=== PATIENT | male | born 1950 | race Caucasian/White ===

== ENCOUNTER → 2020-02-04 12:18 | Outpatient (BNVA) | payer MEDICARE, OTHER, SELFPAY | PROVIDERS: Family Provider Family Medicine; PCP Family Medicine; Visit Provider Anesthesiology Pain Medicine | DX: M47.816 Spondylosis without myelopathy or radiculopathy, lumbar region (principal); M47.812 Spondylosis without myelopathy or radiculopathy, cervical region; M96.1 Postlaminectomy syndrome, not elsewhere classified; Z79.891 Long term (current) use of opiate analgesic | CPT/HCPCS: 99204 ==

== ENCOUNTER → 2020-02-05 10:42 | Outpatient (BNVA) | payer MEDICARE, OTHER, SELFPAY | PROVIDERS: Family Provider Family Medicine; PCP Family Medicine; Visit Provider Anesthesiology Pain Medicine | DX: M47.816 Spondylosis without myelopathy or radiculopathy, lumbar region (principal); M96.1 Postlaminectomy syndrome, not elsewhere classified; M54.9 Dorsalgia, unspecified; Z79.891 Long term (current) use of opiate analgesic | CPT/HCPCS: 64493; 64494; 64495; J2001; J3490 ==

== ENCOUNTER 2020-02-16 14:39 | Outpatient (CLI) | payer MEDICARE, OTHER, SELFPAY ==
--- NOTE | 2020-02-16 14:45 | XR_ITS ---
WS: [id number] SKULL TECHNIQUE: 4 views of the skull CLINICAL INFORMATION: posterior lesion of skull COMPARISON: None. FINDINGS: Slight hypertrophic spurring along the dorsal inferior occipital calvarium. No visualized lytic or bl astic lesion. This appears unchanged since the prior CT November 11, 2014 and has a benign appearance . Moderate spondylitic changes partially visualized in the upper cervical spine. XR/XR skull <4V [id number] IMPRESSION: Hypertrophic spurring along the dorsal inferior occipital calvarium unchanged s lynn prior CT November 11, 2014
== END 2020-02-16 14:40 | disposition home or self-care (01) ==
LOC: RADWPI 14:44
PROVIDERS: Family Provider Family Medicine; PCP Family Medicine; Visit Provider Family Medicine
DX: Z01.818 Encounter for other preprocedural examination (principal); Q75.9 Congenital malformation of skull and face bones, unspecified; E11.9 Type 2 diabetes mellitus without complications; N40.0 Benign prostatic hyperplasia without lower urinary tract symptoms; M54.2 Cervicalgia; I10 Essential (primary) hypertension; E78.00 Pure hypercholesterolemia, unspecified; Z68.25 Body mass index [BMI] 25.0-25.9, adult; Z71.89 Other specified counseling
CPT/HCPCS: 70250; 80053; 80061; 83036; 85025; G0103

== ENCOUNTER → 2020-02-19 10:04 | Outpatient (BNVA) | payer MEDICARE, OTHER, SELFPAY | PROVIDERS: Family Provider Family Medicine; PCP Family Medicine; Visit Provider Anesthesiology Pain Medicine | DX: M47.816 Spondylosis without myelopathy or radiculopathy, lumbar region (principal); M54.9 Dorsalgia, unspecified; M96.1 Postlaminectomy syndrome, not elsewhere classified; M47.812 Spondylosis without myelopathy or radiculopathy, cervical region | CPT/HCPCS: 99213 ==

== ENCOUNTER 2020-03-08 05:52 | Inpatient (IN) | payer MEDICARE, OTHER, SELFPAY ==
[2020-03-05 13:48] VITALS: BMI 23.7
[2020-03-08] VITALS (22 sets, daily range): BP systolic 140–160; BP diastolic 69–86; PULSE 84–111; RESP 11–27; TEMP 36.2–36.8; O2SAT 95–100
--- NOTE | 2020-03-08 | XR_ITS ---
WS: [id number] XR cervical spine 3V* [id number] REASON FOR EXAM: Fusion of spine FINDINGS: Posterior instrumentation changes are noted C3-C4-C5 the hardware appears to be in good ali gnment. XR/XR cervical spine 3V* [id number] IMPRESSION: Posterior fusion C3 3-C4-C5.
--- NOTE | 2020-03-08 | SCC_ITS ---
Procedure Done: C2-C5 laminectomy/fusion/fixation 47.0 seconds of fluoroscopic guidance, for a cumulative dose of 1.76 mGy, was provided to Dr. Benitez by the radiology department. C-arm images of the cervical spine were saved for the patient's permanent record. [facility]
--- NOTE | 2020-03-08 06:21 | ECG_ITS ---
Measurements Intervals [place] Rate: 72 P: 77 OK: 194 QRS: 81 QRSD: 95 T: 64 QT: 387 QTc: 426 SINUS RHYTHM Compared to ECG 07/01/2016 17:11:05 No significant changes Electronically Signed On 03-08-2020 17:07:32 CDT by Musa Hedrick M.D. [email or web address]
[2020-03-08 06:28] LABS: Glucose Point of Care 83 mg/dL (70-110)
--- NOTE | 2020-03-08 06:36 | ANES.PREANE2 ---
Pre-Anesthetic Assessment Pre-Anesthetic Assessment: Height/Weight: Height 1.85 m Weight 81.647 kg Preop Diagnosis: Intervertebral disc disorder with myelopathy, mid cervical region; ossification of posterior longitudinal ligament Proposed Procedure: Operation Date: 03/08/20 07:00 Proposed Procedures p Cervical Laminectomy Posterior w/ Fusion C2-5(Not Applicable) - Lenny Benitez MD Familial anesthetic complications: none Was Beta Shin taken within 24 hours: N/A Last intake: Intake Last Liquid Date 03/07/20 Last Liquid Time 22:00 Last Solid Date 03/07/20 Last Solid Time 18:00 Social: Social History: No alcohol and No tobacco Exam: Pre-Anes Outpt Exam: alert, oriented x 3, clear to auscultation bilaterally and regular rate & rhythm Airway: Cervical ROM: WNL MP: 2 Dentition: False Pulmonary: Pulmonary: None reported CV/HEM: CV/HEM: HTN : : None reported Hepatic: Hepatic: None reported GI: GI: None reported Metabolic: Metabolic: DM and Hyperlipidemia Neuropsych: Neuropsych: None reported Anesthetic Plan: ASA status: 2 Anesthesia: General Risk of > 500 ml blood loss (7ml/kg in children): No PFSH Anesthesia PFSH: Medical History Cervical disc disorder with myelopathy of mid-cervical region Essential hypertension Hypercholesteremia Insomnia Ossification of posterior longitudinal ligament Post laminectomy syndrome Type 2 diabetes mellitus Social History (Updated 03/05/20 @ 13:43 by [email or web address]) Smoking and tobacco status: never smoked Data Anesthesia Other Labs: Laboratory Results - last 48 hr 03/08/20 06:26 POC Glucose 83 Cardiac Studies: No Data to Display
[2020-03-08] MEDS: sodium chloride 0.9% 1,000 ML 30 ML IV (06:37)
[2020-03-08] MEDS: vancomycin 1,000 MG in sodium chloride 0.9% 250 ML 250 MG IV (06:38)
--- NOTE | 2020-03-08 07:19 | P.HPUD_ITS ---
Surgery/Procedure H&P Update DATE OF PROCEDURE: March 08, 2020 DATE H&P PERFORMED: 02/16/20 H&P UPDATE INFORMATION: I have reviewed H&P completed within last 30 days and H&P is in [facility] [place] on date indicated PREOP DIAGNOSIS: Intervertebral disc disorder with myelopathy, mid cervical region; ossification of posterior longitudinal ligament PRIMARY INDICATION FOR PROCEDURE: Spinal stenosis PLANNED PROCEDURE: Operation Date: 03/08/20 07:00 Proposed Procedures Cervical Laminectomy, with posterior fixation / fusion C2-5(Not Applicable) - Lenny Benitez MD
--- NOTE | 2020-03-08 07:20 | PM.OP2 ---
Brief Operative Note: Date of procedure: 03/08/20 Pre-op diagnosis: Cervical spinal stenosis, OPLL Post-op diagnosis: same (with instability of joint) Procedure Done: C2-C5 laminectomy/fusion/fixation Surgeon: Lenny Benitez Estimated blood loss (mL): 50 Complications: None Post-op Plan: PACU, then surgical sharma Condition: stable Disposition: PACU Coding Level of Care Code Acute Echocardiographer for Alex Man
--- NOTE | 2020-03-08 08:21 | SUR.OPER ---
Family Notified Of Patient's Status Via Phone.
[2020-03-08] MEDS: thrombin 5,000 unit SDV 5000 UNIT XX (08:31)
--- NOTE | 2020-03-08 09:19 | SUR.OPER ---
Family Notified Of Patient's Status Via Phone.
--- NOTE | 2020-03-08 10:34 | SUR.OPER ---
Family Notified Of Patient's Status Via Phone.
--- NOTE | 2020-03-08 11:41 | SUR.OPER ---
Family Notified Of Patient's Status Via Phone.
[2020-03-08] MEDS: neomycin-poly-bacitracin oint 28 gm 1 APPLIC TOPICAL (12:28)
--- NOTE | 2020-03-08 12:52 | SUR.PHASEI ---
1248 PATIENT TO PACU FROM OR AT THIS TIME. ORAL AIRWAY IN PLACE, SPO2 100% ON SIMPLE MASK AT 8L. COLLAR IN PLACE TO NECK.
--- NOTE | 2020-03-08 12:54 | SUR.PHASEI ---
1254 ORAL AIRWAY REMOVED. SPO2 100% ON SIMPLE MASK AT 8L.
[2020-03-08] MEDS: fentaNYL 50 mcg/mL INJ 2mL IVP ×2 (13:14→13:24)
--- NOTE | 2020-03-08 13:49 | XR_ITS ---
WS: [id number] XR cervical spine 3V* [id number] REASON FOR EXAM: AP/LAT Post op Fusion FINDINGS: Posterior instrumentation changes C3-C4-C5 with good placement of the pedicle screws. Neutr al and crosstable evaluations were made. XR/XR cervical spine 3V* [id number] IMPRESSION: Stable posterior instrumentation C3-C4-C5.
--- NOTE | 2020-03-08 13:50 | SUR.PHASEI ---
1336 PATIENT TO MED SURG AT THIS TIME. A/OX3. RR EVEN AND UNLABORED. COLLAR IN PLACE. PATIENT C/O PAIN 9/10, FACES 5/10, RESTING IN BED WITH EYES CLOSED.
--- NOTE | 2020-03-08 13:51 | SUR.PHASEI ---
1336 ANESTHESIA AWARE OF LAST DOSE OF IV PAIN MEDICATION. THIS NURSE REMAINED WITH PATIENT UNTIL 1339.
[2020-03-08] MEDS: HYDROcodone-acetaminophen 10-325 mg Tablet PO (14:21)
[2020-03-08] MEDS: sodium chlor 0.9% + KCl 20 mEq 20 MEQ/1,000 ML BAG 75 MEQ IV (14:24)
--- NOTE | 2020-03-08 14:52 | P.PN_ITS ---
Subjective Subjective: Interval history: Complains of incisional/shoulder pain. Medications: Reviewed: Yes Vitals/I&O/Wt Last Vital Signs Temp 98.0 F 03/08/20 13:35 Pulse 87 03/08/20 13:35 Resp 13 03/08/20 13:35 BP 141/74 03/08/20 13:35 Pulse Ox 100 03/08/20 13:35 03/07/20 03/08/20 03/08/20 22:59 06:59 14:59 Intake Total 2049 Output Total 550 / 550 Balance 1500 / 1500 Physical Exam Const: COMMON NORMALS: healthy appearing GENERAL APPEARANCE: cooperative; not comfortable Neck/C-Spine: GENERAL: Yes trachea midline CERVICAL SPINE: Yes collar present Resp: COMMON NORMALS: normal respiratory effort EFFORT & INSPECTION: Yes able to speak in complete sentences and No stridor Extremity: COMMON NORMALS: no clubbing, cyanosis or edema Neuro: COMMON NORMALS: moves all extremities Psych: COMMON NORMALS: mental status grossly normal, Normal thought process present and speech normal APPEARANCE: Yes grossly normal ATTITUDE: Yes engaged, Yes agitated (mild) and Yes Other attitude/behavior findings present (Psych) (related to pain) ACTIVITY/MOTOR BEHAVIOR: Yes appropriate eye contact SPEECH: Yes normal speech MOOD & AFFECT: Yes euthymic mood THOUGHT PROCESS: Normal thought process present ATTENTION/CONCENTRATION: Yes attention grossly intact Skin: WOUNDS: Yes surgical site (Moderate serosanguineous drainage on posterior neck surgical site dressing. Dressing changed at bedside. No active drainage. Sutures intact.) Urinary Catheter Management^: F: Cath Placed During This Visit: yes, but has since been removed by the nurse Urinary Catheter Date of Insertion: 03/08/20 Urinary Catheter Time of Insertion: 07:45 Date Urinary Catheter Removed: 03/08/20 Time Urinary Catheter Discontinued: 12:30 Data Other Xray: Radiologist's impression: Stable posterior instrumentation C3-C4-C5. A&P Assessment and plan (1) Cervical spinal stenosis: Patient underwent multilevel cervical laminectomy with posterior fusion/fixation earlier today. He complains of posterior neck/incisional pain and shoulder pain. He reports chronic shoulder pain related to arthritis. He reports significant difficulty with postoperative pain control following a lumbar fusion many years ago. Plan medication adjustments to improve postoperative pain/spasm control. Cervical collar wear at all times. Daily physical therapy. Complete scheduled postoperative intravenous antibiotics. Evaluate for discharge home tomorrow. Status: Acute (2) Ossification of posterior longitudinal ligament: Status: Acute (3) Instability of joint: Status: Acute Attestations Medical Necessity Statement*: Patient is appropriate for in-hospital management after extensive posterior cervical decompression/fusion/fixation surgery earlier today. Time Spent in Patient Care: Postop global Coding Level of Care Code Acute Learning Center Instructor for [facility] Fwd Exam Detailed Diagnoses Cervical spinal stenosis M48.02 Ossification of posterior longitudinal ligament M48.8X9 Instability of joint M25.30 Comment Postop global
[2020-03-08] MEDS: ketorolac 30 mg/mL INJ 15 MG IVP ×2 (14:57→20:09)
[2020-03-08] MEDS: gabapentin 300 mg Capsule 600 MG PO ×2 (16:02→21:45)
--- NOTE | 2020-03-08 16:36 | CTR_ITS ---
PROCEDURE INFORMATION: Exam: CT Cervical Spine Without Contrast Exam date and time: 03/08/2020 4:48 PM Age: 69 years old Clinical indication: Other: Post op pain; Prior surgery; Surgery date: Post-operative (0-2 days); Additional info: Uncontrolled pain post surgery TECHNIQUE: Imaging protocol: Computed tomography images of the cervical spine without contrast. Radiation optimization: All CT scans at this facility use at least one of these dose optimization techniques: automated exposure control; mA and/or kV adjustment per patient size (includes targeted exams where dose is matched to clinical indication); or iterative reconstruction. COMPARISON: CT Cervical Spine wo* [id number] 07/10/2019 3:18 PM RADIATION DOSE METRICS: Total DLP: 920.99 mGy-cm FINDINGS: Vertebrae: Postoperative changes are identified with pedicle screws and posterior natasha fixation at C3,C4 and C5. The superior aspect of the rods have hooks are wrapping around the lamina of C2 posteriorly. This level is narrowed anteriorly by a large area of calcification along the posterior aspect of C2 and the C2-C3 disc space that measures up to 8 mm anterior to posterior. The laminectomy defect does not extend to this level. This is best appreciated on series 603, image 25. No additional area concerning for new cord compression is identified. Laminectomy defects are noted from C3 through C5. No subluxation or acute fracture. No bony destruction or osteomyelitis. Discs/Spinal canal/Neural foramina: These hooks are protruding into the central canal by about 5 mm posterior laterally and bilaterally. The combination of the postoperative changes and this calcification along the posterior aspect of the C2 vertebral body and disc space is resulting and marked narrowing of the spinal canal posterior to the inferior aspect of C2 and the C2-C3 disc space. Sagittal images also demonstrate this narrowing. Underlying moderate to severe diffuse degenerative changes are noted. Extensive calcification along the posterior longitudinal ligament is noted. Unchanged marked endplate bony proliferative changes and foraminal narrowing is noted at C5-C6 right greater than left. Epidural space: The exam is limited by artifact from the hardware but no definite epidural collection is identified. Other bones/joints: No hardware complication. Prevertebral Space: Prevertebral soft tissues have an appropriate appearance. Soft tissues: There is subcutaneous emphysema in the soft tissues posterior to the neck compatible with recent surgery. There is very little ill-defined fluid in the fascial plane between the paraspinal muscles in the operative bed compatible probable postoperative hematoma or serous fluid. Lungs: Lung apices are normal. CT/CT cervical spin wo con* [id number] IMPRESSION: 1. Recent postoperative changes in the cervical spine. No fluid collection such as an abscess, significant hematoma or osteomyelitis. Underlying degenerative changes and ligamentous calcification is noted. 2. There is narrowing of the central canal posterior to C2 and C3 due to the combination of underlying chronic large posterior ligamentous calcification and new postoperative narrowing due to the hooks on the lamina of C2. There is concern for new central canal stenosis/circumferential cord compression. The laminectomy defect does not involve this level. Radiation Dose CTDIVOL = (mGy): DLP = 920.99 (mGy-cm)
[2020-03-08 17:14] LABS: Glucose Point of Care 171 mg/dL (70-110)
[2020-03-08] MEDS: docusate sodium 100 mg Capsule PO (17:36)
[2020-03-08] MEDS: oxyCODONE 5 mg IR Tab/Cap PO ×2 (17:36→21:46)
--- NOTE | 2020-03-08 18:02 | PM.PN ---
Vitals/I&O/Wt Last Vital Signs Temp 97.8 F 03/08/20 14:45 Pulse 99 03/08/20 16:12 Resp 18 03/08/20 17:36 BP 158/86 03/08/20 14:45 Pulse Ox 96 03/08/20 17:36 03/08/20 03/08/20 03/08/20 06:59 14:59 22:59 Intake Total 2049 / 2049 Output Total 550 / 550 Balance 1500 / 1500 Physical Exam Urinary Catheter Management^: F: Cath Placed During This Visit: yes, but has since been removed by the nurse Urinary Catheter Date of Insertion: 03/08/20 Urinary Catheter Time of Insertion: 07:45 Date Urinary Catheter Removed: 03/08/20 Time Urinary Catheter Discontinued: 12:30 Coding Level of Care Code Acute Operations Forester for Alex Man
[2020-03-08] MEDS: ALPRAZolam 0.5 mg Tablet PO (18:38)
[2020-03-08 21:24] LABS: Glucose Point of Care 127 mg/dL (70-110)
[2020-03-09] VITALS (8 sets, daily range): BP systolic 92–147; BP diastolic 55–75; PULSE 83–100; RESP 16–20; TEMP 36.6–37.6; O2SAT 93–96
[2020-03-09] MEDS: ketorolac 30 mg/mL INJ 15 MG IVP ×2 (02:44→08:51)
[2020-03-09] MEDS: sodium chlor 0.9% + KCl 20 mEq 20 MEQ/1,000 ML BAG 75 MEQ IV (02:52)
[2020-03-09] MEDS: ALPRAZolam 0.5 mg Tablet 1 MG PO ×2 (04:38→21:21)
[2020-03-09] MEDS: oxyCODONE 5 mg IR Tab/Cap PO ×2 (04:44→10:23)
[2020-03-09 06:40] LABS: Glucose Point of Care 107 mg/dL (70-110)
[2020-03-09] MEDS: gabapentin 300 mg Capsule 600 MG PO ×3 (08:50→21:21)
[2020-03-09] MEDS: doxazosin 4 mg Tablet PO (08:51)
[2020-03-09] MEDS: lisinopril 10 mg Tablet PO (08:51)
[2020-03-09] MEDS: docusate sodium 100 mg Capsule PO ×2 (08:51→17:58)
[2020-03-09 11:37] LABS: Glucose Point of Care 272 mg/dL (70-110)
--- NOTE | 2020-03-09 15:20 | PC.NURSE ---
1520 WENT INTO PTS ROOM, PT WAS UP WALKING AROUND HIS ROOM, HE GOT OUT OF BED BY HIMSELF. HE ALSO WAS REACHING WITH BOTH ARMS. EARLIER PT WAS A MOD ASSIST. NO COMPLAINTS OF PAIN AT THIS TIME.
--- NOTE | 2020-03-09 16:23 | P.OP_ITS ---
Operative Report Date of procedure: March 08, 2020 Pre-op Diagnosis: Intervertebral disc disorder with myelopathy, mid cervical region; ossification of posterior longitudinal ligament Post-op diagnosis: same (With instability of joint) Procedure Done: Multilevel cervical laminectomy, with C2-C5 posterior fusion/segmental fixation. Implants: DePuy/Synthes Axon 3.5 mm x 14 mm screws, 3.5 mm rods, transverse connector, locking screws, and short lamina hooks. Pathology: none sent Surgeon: Lenny Benitez Anesthesia: General Estimated blood loss (mL): 50 IV fluids (mL): 1,500 Urine output (mL): 500 Complications: None Condition: stable Disposition: PACU Brief History: The patient is a 69 year-old male with symptomatic, radiographically confirmed cervical disc/joint disease, cervical spinal stenosis, and OPLL. Diagnostic imaging demonstrated marked multilevel anterior canal compromise related to degenerative disc/joint disease, marginal osteophytes and OPLL. After review of the diagnostic and treatment options with the risks, potential benefits and rationale for each, the patient requested to p simeon with surgical intervention for multilevel cervical decompression via laminectomy, with posterior fusion/fixation. Procedure: After routine preoperative evaluation and informed consent were obtained, the patient was taken to the Operating Room and placed under general endotracheal anesthesia. He was fit in the Connor 3-point overhead crane technician and rotated onto the Operating Room table in the prone position. The Connor adapter was utilized to fix the Connor headholder and stabilize the head/neck in the desired position. Chest and pelvic bolsters were positioned to ensure the abdomen was decompressed. All pressure points were padded. Intraoperative fluoroscopy was utilized to assess positioning and spinal alignment. The occipital scalp, posterior neck and thorax were prepared with hair clippers. The area was scrubbed with Betadine and prepped with DuraPrep. A proposed midline skin incision was marked with a sterile skin marker. Sterile towels and drapes were applied and an [place] surgical barrier was placed. The proposed incision site was infiltrated with 1% Xylocaine with Epinephrine. A skin incision was made and carried down into the subcutaneous tissues. The deep cervical fascia was identified and divided in the midline. A bilateral subperiosteal dissection was carried out along the lamina from C2-C6. Deep self-retaining retractors were placed. Intraoperative radiography was utilized to assist in verifying the desired surgical levels. Bilateral lateral mass screws were placed at C3/C4/C5, with flouroscopic guidance. Good bone purchase was obtained at each screw site. Laminectomies were then fashioned utilizing Leksell and Kerrison rongeurs. The laminectomy primarily involved C3, C4, and C5, with limited resectiion of the inferior aspect of C2. Ligamentum flavum was resected at the base of the laminectomy sites. Ligament was undercut into the lateral recesses and beyond the cephalad extent of the C2 laminectomy. At the completion of the laminectomies, the central canal was probed above and below the laminectomy defects utilizing a [employer] dental instrument. No residual neural impingement/spinal stenosis was appreciated requiring further extension of the laminectomy. Once the posterior canal decompression was felt to be adequate, rods of the desired size and configuration were chosen. [place] were placed over the C2 lamina, bilaterally. A natasha was placed within the hook and the 3 lateral mass screws on each side. The locking screws were tightened with a torque wrench. A transverse connector was chosen and secured to the primary rods with locking screws and the torque wrench. The crimping tool was utilized bilaterally to lock the transverse connector position. The construct was inspec kim, evaluated with flouroscopy, and felt to be secure. The site was copiously irrigated with sterile saline and antibiotic irrigation. Hemostasis was ensured with electrocautery and thrombin-soaked Gelfoam. Morselized autograft from the laminectomies was packed over the decorticated facet joints/lateral masses, bilaterally. This was augmented with [place] moldable demineralized fibers. Wound closure was performed in multiple layers. The deep cervical fascia was closed with 0 Nurolon in a simple interrupted fashion. Superficial fascia and deep dermis were closed as separate layers, utilizing 2-0 Vicryl Plus in a simple interrupted fashion. Final skin closure was performed with interrupted 3-0 nylon sutures. Antibiotic ointment was placed along the incision line. A sterile dressing was placed. The patient was then rotated onto the Recovery Room cart in the supine position. The Connor overhead crane technician was removed. He was extubated without incident. The patient tolerated the procedure well. All sponge, needle and instrument counts were correct at the completion of the procedure. The patient was transported to the Post Anesthesia Care Unit for routine postoperative monitoring.
[2020-03-09 16:54] LABS: Glucose Point of Care 144 mg/dL (70-110)
[2020-03-09 20:39] LABS: Glucose Point of Care 132 mg/dL (70-110)
--- NOTE | 2020-03-09 23:57 | PM.PN ---
Subjective Subjective: Interval history: A little better. Vitals/I&O/Wt Last Vital Signs Temp 98.5 F 03/09/20 20:00 Pulse 83 03/09/20 20:00 Resp 18 03/09/20 20:00 BP 133/72 03/09/20 20:00 Pulse Ox 94 03/09/20 20:00 03/09/20 03/09/20 03/10/20 14:59 22:59 06:59 Intake Total 240 / 240 240 / 480 Output Total 400 / 400 1225 / 1625 Balance -160 / -160 -985 / -1145 Physical Exam Const: COMMON NORMALS: no acute distress GENERAL APPEARANCE: cooperative and comfortable Neck/C-Spine: GENERAL: Yes trachea midline CERVICAL SPINE: Yes collar present Resp: COMMON NORMALS: normal respiratory effort EFFORT & INSPECTION: Yes able to speak in complete sentences and No tachypneic Extremity: COMMON NORMALS: no clubbing, cyanosis or edema Neuro: COMMON NORMALS: moves all extremities GAIT: Yes Normal gait present Psych: COMMON NORMALS: Normal thought process present ATTITUDE: Yes calm and Yes engaged ACTIVITY/MOTOR BEHAVIOR: Yes appropriate eye contact MOOD & AFFECT: Yes euthymic mood THOUGHT PROCESS: Normal thought process present ATTENTION/CONCENTRATION: Yes attention grossly intact Skin: WOUNDS: Yes surgical site (posterior cervical surgical site dressing w/scant serosanguineous drainage) Details: drainage (no active drainage), sutures (intact) and other Urinary Catheter Management^: F: Cath Placed During This Visit: yes, but has since been removed by the nurse Urinary Catheter Date of Insertion: 03/08/20 Urinary Catheter Time of Insertion: 07:45 Date Urinary Catheter Removed: 03/08/20 Time Urinary Catheter Discontinued: 12:[address]: My impression: Postop changes of recent multilevel cervical laminectomy, with bilateral C2 laminar hook/C3-C5 lateral mass screw and natasha fixation, and posterolateral fusion. No noted complication. A&P Assessment and plan (1) Cervical spinal stenosis: Patient is POD#1 after multilevel cervical laminectomy with posterior fusion/fixation. He complained of posterior neck and shoulder pain yesterday evening that prompted a c-spine CT. The study was personally reviewed, and discussed with the outside Radiologist. He reports improvement in pain today, and has been ambulatory with PT and independently. He is voiding and tolerating oral intake. He has completed scheduled postop IV antibiotics, and is utilizing only po pain meds. He was deemed appropriate for discharge home, but requested an appeal for another overnight stay. Plan re-evaluation in AM,and likely discharge home with Home Health services. Continue C-collar wear, activity restrictions and medications for postop pain/spasms. Status: Acute (2) Ossification of posterior longitudinal ligament: Status: Acute (3) Instability of joint: Status: Acute Attestations Medical Necessity Statement*: Patient is appropriate for in-hospital management after a multilevel posterior cervical decompression/fusion/fixation procedure performed yesterday. Coding Level of Care Code Acute Dermatologist for [facility] Fwd Exam Detailed Diagnoses Cervical spinal stenosis M48.02 Ossification of posterior longitudinal ligament M48.8X9 Instability of joint M25.30 Comment Postop global
[2020-03-10] VITALS: BP 149/66; PULSE 86; RESP 18; TEMP 37.3; O2SAT 93
[2020-03-10 04:00] VITALS: BP 169/73; PULSE 109; RESP 16; TEMP 36.9; O2SAT 95
[2020-03-10] MEDS: oxyCODONE 5 mg IR Tab/Cap PO ×2 (04:48→12:37)
[2020-03-10 07:41] VITALS: BP 123/73; PULSE 87; RESP 18; TEMP 37; O2SAT 95
[2020-03-10] MEDS: docusate sodium 100 mg Capsule PO (08:52)
[2020-03-10] MEDS: doxazosin 4 mg Tablet PO (08:52)
[2020-03-10] MEDS: gabapentin 300 mg Capsule 600 MG PO (08:52)
[2020-03-10] MEDS: lisinopril 10 mg Tablet PO (08:52)
[2020-03-10 09:04] LABS: Glucose Point of Care 162 mg/dL (70-110)
[2020-03-10 11:27] VITALS: BP 121/63; PULSE 79; RESP 18; TEMP 37.7; O2SAT 96
[2020-03-10 11:45] LABS: Glucose Point of Care 188 mg/dL (70-110)
[2020-03-10 12:23] VITALS: BP 121/63; PULSE 79; RESP 18; TEMP 37.7; O2SAT 96
[2020-03-10 12:37] VITALS: RESP 18
--- NOTE | 2020-03-10 16:35 | PM.DCS ---
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 Diagnostic imaging demonstrated marked multilevel anterior canal compromise related to degenerative disc/joint disease, marginal osteophytes and OPLL. After review of the diagnostic and treatment options with the risks, potential benefits and rationale for each, the patient requested to proceed with surgical intervention for multilevel cervical decompression via laminectomy, with posterior fusion/fixation. Hospital Course Hospital Course: The patient underwent multilevel cervical laminectomy with C2-C5 segmental posterior fixation and fusion on 03/08/2020. He complained of postoperative pain that was treated with medication adjustments. Postoperative x-rays were reviewed, and no complications were appreciated. Persistent/refractory pain was further evaluated with a cervical spine CT. Subsequent medication adjustments were made to better control pain issues. He noted gradual improvement over his hospital stay. He completed perioperative intravenous antibiotic doses, and the physical therapy postoperative spine protocol. He was ambulatory, voiding, and tolerating diabetic diet on postoperative day #1. He appealed the planned discharge, and was maintained in the hospital for an additional overnight stay. He was ultimately discharged home on postoperative day #2, with Home Health services. Physical Exam Const: COMMON NORMALS: no acute distress GENERAL APPEARANCE: cooperative; not in distress Neck/C-Spine: COMMON NORMALS: supple and no JVD CERVICAL SPINE: Yes collar present NECK IMAGES: 1. Surgical scar Resp: COMMON NORMALS: normal respiratory effort EFFORT & INSPECTION: Yes able to speak in complete sentences and No tachypneic Cardio: COMMON NORMALS: no JVD Extremity: COMMON NORMALS: no clubbing, cyanosis or edema Neuro: COMMON NORMALS: moves all extremities GAIT: Yes Other gait observations present (Ambulates unassisted) Psych: COMMON NORMALS: mental status grossly normal and speech normal APPEARANCE: Yes grossly normal ATTITUDE: Yes calm and Yes engaged ACTIVITY/MOTOR BEHAVIOR: Yes appropriate eye contact SPEECH: Yes normal speech MOOD & AFFECT: Yes euthymic mood ATTENTION/CONCENTRATION: Yes attention grossly intact MEMORY/COGNITION: Yes memory grossly intact Skin: WOUNDS: Yes surgical site (Posterior cervical surgical site dressing clean/dry/intact.) Urinary Catheter Management^: F: Cath Placed During This Visit: yes, but has since been removed by the nurse Urinary Catheter Date of Insertion: 03/08/20 Urinary Catheter Time of Insertion: 07:45 Date Urinary Catheter Removed: 03/08/20 Time Urinary Catheter Discontinued: 12:30 Discharge Data Data Completed and Pending: Completed Studies During Hospitalization Category Date Time Status CT cervical spin wo con* [id number] Stat Cat Scan 03/08/20 16:36 Completed XR cervical spine 3V* [id number] Routine Exams 03/08/20 Completed XR cervical spine 3V* [id number] Routine Exams 03/08/20 13:49 Completed Procedures Performed: Multilevel cervical laminectomy, with C2-C5 posterior cervical fixation and fusion. Intravenous antibiotics. Physical therapy. Vitals: Last Vital Signs Temp 99.8 F H 03/10/20 12:23 Pulse 79 03/10/20 12:23 Resp 18 03/10/20 12:37 BP 121/63 03/10/20 12:23 Pulse Ox 96 03/10/20 12:23 Discharge Plan Discharge Patient Disposition: Home Health Service Condition: Stable Prescriptions: New Percocet 10-325 mg tablet 1 tab PO Q4H MDD 5 tabs PRN (Reason: pain) Qty: 30 RF: 0 Continued tizanidine 4 mg capsule 4 mg PO Q8H PRN (Reason: Pain) RF: 0 metformin 1,000 mg tablet 1,000 mg PO BID RF: 0 lutein 20 mg tablet 20 mg PO DAILY RF: 0 glimepiride 2 mg tablet 2 mg PO DAILY RF: 0 ramipril 2.5 mg capsule 2.5 mg PO QDAY 90 Days Qty: 90 RF: 3 gabapentin 600 mg tablet 600 mg PO TID 90 Days Qty: 270 RF: 3 alprazolam 1 mg tablet 1 mg PO DAILY 30 Days Qty: 30 RF: 5 doxazosin 4 mg tablet 4 mg PO DAILY 90 Days Qty: 90 RF: 3 Discharge Orders: Discharge Order (Routine); Ordered 03/10/20 Ordered By: Lenny Benitez Referrals: [facility] ([facility]) [Outside] Lenny Benitez MD [Physician] - 03/25/20 10:00 am (2 week postop visit/suture removal) Discharge Diet: Diabetic Discharge Activity: Limit activity as instructed and As per PT/OT instructions Patient Instructions: Diabetes and Diet, Oxycodone/Acetaminophen (By mouth), Anterior Posterior Spinal Fusion (DC), Laminectomy for Herniated Disc (DC) Activity Restrictions/Additional Instructions: Activity -Cervical fusion: Wear cervical collar 24 hours a day. Change as necessary for showering, shaving, or if it becomes soiled. -No lifting or reaching overhead. - No driving until office followup visit - No lifting/pushing/pulling over 10 pounds - Avoid twisting or bending - Walking is encouraged - Home exercise per physical therapist - You may engage in sexual intercourse at any time as long as it is comfortable for you - Check with your doctor before returning to work. Notify your doctor if you develop: - temperature of 101.5 degrees F. or higher - redness or swelling of the incision - Foul drainage - increasing pain - increasing numbness or tingling in the arms or legs - New or increasing problems with vision, balance, memory, speaking, nausea or vomiting Hygiene: - Showering is okay - No tub baths or soaking Other: Remove outer bandage 3 days after surgery. If you have paper strips, leave in place until they fall off on their own. If you have stitches, keep your incision dry until the stitches are removed. Your doctor's office is available to answer any questions from 7 AM to 5:00 PM, Sunday through at [phone]. After hours, go to the emergency room at [facility] or call 911 for assistance. 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
== END 2020-03-10 12:30 | disposition home health service (06) | DRG 472 ==
LOC: OR 05:52 → MEDSURG 09:46
PROVIDERS: Admitting Provider Specialist; PCP Family Medicine; Visit Provider Specialist
PROC: 01N10ZZ Release Cervical Nerve, Open Approach (ICD-10-PCS; CPT 22600; principal; 2020-03-08 07:00)
DX: M48.02 Spinal stenosis, cervical region (principal); M50.020 Cervical disc disorder with myelopathy, mid-cervical region, unspecified level; M25.30 Other instability, unspecified joint; I10 Essential (primary) hypertension; E11.9 Type 2 diabetes mellitus without complications; E78.00 Pure hypercholesterolemia, unspecified; N40.0 Benign prostatic hyperplasia without lower urinary tract symptoms; Z79.84 Long term (current) use of oral hypoglycemic drugs; Z98.1 Arthrodesis status; M48.8X2 Other specified spondylopathies, cervical region
CPT/HCPCS: 12345; 36416; 51702; 72040; 72125; 76000; 82962; 93005; 96365; 96372; 96375; 97161; 97164; 97530; 97760; C1713; J0131; J0690; J1100; J1815; J1885; J2001; J2370; J2405; J2704; J3010; J3370; J3490; J7030; J7050; L0172; L0174

== ENCOUNTER 2020-03-22 14:44 | Outpatient (CLI) | payer MEDICARE, OTHER, SELFPAY ==
--- NOTE | 2020-03-22 14:49 | XR_ITS ---
WS: [id number] XR cervical spine 3V* [id number] REASON FOR EXAM: s/p cervical spinal fusion FINDINGS: This study shows anterior fusion C3-C4-C5 appears to be stable. There is anterior fusion C2-C3. There is spurring seen anteriorly see 4-C5-C6. There is ankylosing changes seen 5-6, C6-7. XR/XR cervical spine 3V* [id number] IMPRESSION: Fusion of the cervical spine anteriorly There is posterior instrumentation C3-C4-C5 stable
== END 2020-03-22 14:45 | disposition home or self-care (01) ==
LOC: WPI 14:46
PROVIDERS: PCP Family Medicine; Visit Provider Licensed Practical Nurse
DX: Z98.1 Arthrodesis status (principal); M43.22 Fusion of spine, cervical region
CPT/HCPCS: 72040

== ENCOUNTER 2020-05-03 10:20 | Outpatient (CLI) | payer MEDICARE, OTHER, SELFPAY ==
--- NOTE | 2020-05-03 08:30 | XR_ITS ---
WS: [id number] CERVICAL SPINE 2 VIEWS HISTORY: s/p cervical spinal fusion COMPARISON: 03/22/2020 Posterior cervical fusion hardware extends from C2 through C5. Plates and screws are intact. No fract ure or movement. C4 retrolisthesis by 2 mm. Anterior bridging osteophytes throughout the cervical spine. Soft tissues are normal. XR/XR cervical spine 3V* [id number] IMPRESSION: Posterior cervical fusion from C2 through C5. No interval change or complicatio n since 03/22/2020.
== END 2020-05-03 10:21 | disposition home or self-care (01) ==
LOC: RADWPI 10:28
PROVIDERS: PCP Family Medicine; Visit Provider Licensed Practical Nurse
DX: Z98.1 Arthrodesis status (principal); M43.22 Fusion of spine, cervical region
CPT/HCPCS: 72040

== ENCOUNTER 2020-05-12 14:09 | Outpatient (CLI) | payer MEDICARE, OTHER, SELFPAY ==
--- NOTE | 2020-05-12 14:15 | CT_ITS ---
WS: [id number] CT CERVICAL SPINE TECHNIQUE: Noncontrast CT of the cervical spine with coronal and sagittal reformatted images. CLINICAL INFORMATION: s/p cervical spinal fusion COMPARISON: March 08, 2020 DLP: 1591.[address] scans at [facility] use at least one of these dose optimization techniques: automat ed exposure control; mA and/or kV adjustment per patient size (includes targeted exams where dose is matched to clinical indication); or iterative reconstruction. FINDINGS: Straightening of the normal cervical lordosis. Postoperative changes dorsal cervical fusion with lami na hooks at C2. Screw fixation C2-C5. Associated laminectomy defects. No evidence of hardware looseni ng. C2-C3: Bulky ossification posterior longitudinal ligament with mild central canal stenosis. Moderate left foraminal narrowing. Moderate facet arthropathy. C3-C4: Bulky ossification posterior longitudinal ligament. Spinal canal is patent. Mild bilateral bon y foraminal narrowing left greater than right. C4-C5: Disc osteophyte complex with endplate ridging. Laminectomy defects. Moderate left foraminal na rrowing. Moderate facet arthropathy. C5-C6: Disc disc osteophyte complex with slight effacement of ventral thecal sac. Moderate right and mild left bony foraminal narrowing. C6-C7: Disc osteophyte complex with endplate ridging. Spinal canal and foramen are patent. C7-T1: Disc osteophyte complex with endplate ridging. Mild left and no significant right foraminal na rrowing. Mild to moderate facet arthropathy. Visualized posterior nasopharynx: Normal. Prevertebral soft tissues: Normal. CT/CT cervical spin wo con* [id number] IMPRESSION: 1. Prior postoperative changes posterior element fixation with C2 lamina hooks . Screw fixation extending to C5. No evidence of hardware loosening. 2. Mild central canal stenosis C2-3 with bulky ossification of the posterior l ongitudinal ligament. 3. Otherwise multilevel bony foraminal narrowing described above unchanged.
== END 2020-05-12 14:10 | disposition home or self-care (01) ==
LOC: RADWPI 14:10
PROVIDERS: PCP Family Medicine; Visit Provider Licensed Practical Nurse
DX: Z98.1 Arthrodesis status (principal); M48.02 Spinal stenosis, cervical region; M47.892 Other spondylosis, cervical region
CPT/HCPCS: 72125

== ENCOUNTER 2020-06-02 11:33 | Outpatient (CLI) | payer MEDICARE, OTHER, SELFPAY ==
--- NOTE | 2020-06-02 11:45 | CT_ITS ---
WS: [id number] CT CERVICAL SPINE HISTORY: s/p cervical spinal fusion TECHNIQUE: Contiguous 2.5 mm axial imaging performed through the entire cervical spine. Sagittal and coronal reformats also performed. All CT scans at [facility] use at least one of these do se optimization techniques: automated exposure control; mA and/or kV adjustment per patient size (inc ludes targeted exams where dose is matched to clinical indication); or iterative reconstruction. DLP: 1563.89 mGycm COMPARISON: 05/12/2020 Straightening of the normal cervical lordosis. Posterior cervical fusion with C2 lamina hooks is unch anged. Fusion extends from C2 to C5. Mild anterior wedging of C5. There is extensive bridging osteoph ytes beginning at C2 and intermittently visualized anterior and posteriorly of the cervical spine. La rgest osteophytes project posteriorly along the ventral thecal sac at the C2-3 level extending over a length of 2.0 cm and a width of 0.8 cm. There is mild encroachment upon the ventral thecal sac. C2-C3: Posterior ossification encroaching upon the central canal. Large posterior laminectomy defects . Mild bilateral foraminal stenosis. C3-C4: Posterior ossification encroaching upon the ventral thecal sac. Bilateral large laminectomy de fects. Mild central and bilateral foraminal stenosis. C4-C5: Extensive osteophytic ridging most significantly encroaching into the LEFT foramen. Moderate s evere LEFT foraminal narrowing with large posterior laminectomy defect. C5-C6: Extensive osteophytic ridging resulting in mild central and bilateral foraminal narrowing, RIG HT greater than LEFT. C6-C7: Mild osteophytic ridging without significant stenosis. C7-T1: Mild osteophytic ridging without stenosis. Paravertebral soft tissues are normal. Carotid artery calcifications. CT/CT cervical spin wo con* [id number] IMPRESSION: 1. Extensive posterior screw and plate fixation C2 lamina hooks is unchanged. No evidence for loosening or fracture. 2. Significant opacification of the posterior longitudinal ligament, most sign ificant at C2-C4. 3. Large posterior laminectomy defects from C2 to C5. 4. Large hypertrophic osteophytes encroach upon the ventral thecal sac C2-C4. 5. Moderate to severe LEFT foraminal stenosis at C4-5. 6. Mild central and bilateral foraminal stenosis at C5-6, RIGHT greater than L EFT. 7. Mild central and bilateral foraminal stenosis at C3-4.
== END 2020-06-02 11:34 | disposition home or self-care (01) ==
LOC: RADWPI 11:36
PROVIDERS: Family Provider Family Medicine; PCP Family Medicine; Visit Provider Specialist
DX: Z98.1 Arthrodesis status (principal); M96.1 Postlaminectomy syndrome, not elsewhere classified; M48.02 Spinal stenosis, cervical region; M25.78 Osteophyte, vertebrae
CPT/HCPCS: 72125; 99213

== ENCOUNTER 2020-07-05 10:08 | Outpatient (CLI) | payer MEDICARE, OTHER, SELFPAY ==
--- NOTE | 2020-07-05 10:00 | CT_ITS ---
WS: [id number] CT CERVICAL SPINE TECHNIQUE: Noncontrast CT of the cervical spine with coronal and sagittal reformatted images. CLINICAL INFORMATION: S/P fusion/fixation COMPARISON: June 02, 2020 and May 12, 2020 DLP: 1668.[address] scans at [facility] use at least one of these dose optimization techniques: automat ed exposure control; mA and/or kV adjustment per patient size (includes targeted exams where dose is matched to clinical indication); or iterative reconstruction. FINDINGS: Straightening of the normal cervical lordosis. Postoperative changes posterior elements cervical fusi on with lamina hooks at C2. Screw fixation posteriorly C2-C5 with interconnecting rods. Hardware appe ars intact. Associated laminectomy defects. No evidence of hardware loosening. C2-C3: Bulky ossification posterior longitudinal ligament with mild central canal stenosis. Moderate left foraminal narrowing. Moderate facet arthropathy. C3-C4: Bulky ossification posterior longitudinal ligament. Spinal canal is patent. Mild bilateral bon y foraminal narrowing left greater than right. Laminectomy defects. C4-C5: Disc osteophyte complex with endplate ridging. Laminectomy defects. Moderate to severe left fo raminal narrowing. Moderate facet arthropathy. C5-C6: Disc disc osteophyte complex with slight effacement of ventral thecal sac. Moderate to severe right and mild left bony foraminal narrowing. C6-C7: Disc osteophyte complex with endplate ridging. Spinal canal and foramen are patent. C7-T1: Disc osteophyte complex with endplate ridging. Mild left and no significant right foraminal na rrowing. Mild to moderate facet arthropathy. Visualized posterior nasopharynx: Normal. Prevertebral soft tissues: Normal. CT/CT cervical spin wo con* [id number] IMPRESSION: 1. Prior postoperative changes posterior elements fixation with C2 lamina hook s. Screw fixation at C3-C5 with interconnecting rods. Hardware appears stable. 2. Mild central canal stenosis C2-C3 with ossification posterior longitudinal ligament and bulky osteophyte. 3. Laminectomy defects C3-C4, C4-C5 with ossification posterior longitudinal l igament and bulky protruding osteophytes. 4. Multilevel bony foraminal narrowing as previously described. Worse at left C4-C5 and right C5-6 moderate to severe. 5. Otherwise no other significant interval changes.
== END 2020-07-05 10:09 | disposition home or self-care (01) ==
LOC: RADWPI 10:12
PROVIDERS: Family Provider Family Medicine; PCP Family Medicine; Visit Provider Licensed Practical Nurse
DX: Z98.1 Arthrodesis status (principal); M48.02 Spinal stenosis, cervical region; M96.1 Postlaminectomy syndrome, not elsewhere classified
CPT/HCPCS: 72125; 99213

== ENCOUNTER → 2020-07-19 09:43 | Outpatient (BNVA) | payer MEDICARE, OTHER, SELFPAY | PROVIDERS: Family Provider Family Medicine; PCP Family Medicine; Visit Provider Anesthesiology Pain Medicine | DX: M48.02 Spinal stenosis, cervical region (principal); M79.18 Myalgia, other site; Z48.89 Encounter for other specified surgical aftercare; Z98.890 Other specified postprocedural states; Z79.891 Long term (current) use of opiate analgesic | CPT/HCPCS: 20553; 99213; J1030; J3490 ==

== ENCOUNTER 2020-08-09 11:25 | Outpatient (CLI) | payer MEDICARE, OTHER, SELFPAY ==
--- NOTE | 2020-08-09 11:30 | CT_ITS ---
WS: [id number] CT CERVICAL SPINE HISTORY: S/P fusion/fixation TECHNIQUE: Contiguous 2.5 mm axial imaging performed through the entire cervical spine. Sagittal and coronal reformats also performed. All CT scans at [facility] use at least one of these do se optimization techniques: automated exposure control; mA and/or kV adjustment per patient size (inc ludes targeted exams where dose is matched to clinical indication); or iterative reconstruction. DLP: 1580.97 mGycm COMPARISON: 07/05/2020 Straightening of the normal cervical lordosis. Postoperative changes of posterior fusion extends from C2 through C5. C2 laminar hooks are unchanged in position. Screw fixation at C3 through through C5 w ith interconnecting rods looks to be in intact with no fractures. C2-C3: Large ossifications along the posterior longitudinal ligament with encroachment upon the ventr al thecal sac. Mild narrowing of the LEFT foramen. Ossification abuts the ventral thecal sac but ther e is a large posterior laminectomy defect. C3-C4: Large ossifications on the posterior longitudinal ligament encroaching upon the ventral thecal sac. Large posterior laminectomy defects. Mild bilateral foraminal stenosis, LEFT greater than RIGHT . C4-C5: Osteophytic ridging and smaller ossifications along the posterior ligament. Large posterior la minectomy defects with mild to moderate LEFT foraminal stenosis. C5-C6: Extensive vertebral body osteophytes with moderate bilateral foraminal stenosis. C6-C7: No significant stenosis. C7-T1: Normal. Lung apices are clear. CT/CT cervical spin wo con* [id number] IMPRESSION: 1. Status post extensive posterior fusion from L2 to L5 with C2 laminar hooks. Intact with no complication. 2. Large bulky posterior longitudinal ligament osteophytes from C2-3 through C 5-C6. Encroachment upon the ventral thecal sac without stenosis due to the exte nsive laminectomy defects posteriorly. 3. Moderate LEFT foraminal stenosis at C4-5 and bilaterally at C5-6. 4. No interval change or complications.
== END 2020-08-09 11:26 | disposition home or self-care (01) ==
LOC: RADWPI 11:28
PROVIDERS: PCP Family Medicine; Visit Provider Licensed Practical Nurse
DX: Z98.1 Arthrodesis status (principal); M48.02 Spinal stenosis, cervical region; M25.78 Osteophyte, vertebrae; M43.26 Fusion of spine, lumbar region
CPT/HCPCS: 72125

== ENCOUNTER → 2020-08-12 09:59 | Outpatient (BNVA) | payer MEDICARE, OTHER, SELFPAY | PROVIDERS: PCP Family Medicine; Visit Provider Licensed Practical Nurse | DX: M89.8X1 Other specified disorders of bone, shoulder (principal); Z98.890 Other specified postprocedural states | CPT/HCPCS: 99213 ==

== ENCOUNTER 2020-09-17 15:20 | Outpatient (CLI) | payer MEDICARE, OTHER, SELFPAY ==
--- NOTE | 2020-09-17 | CT_ITS ---
WS: [id number] CT CERVICAL SPINE TECHNIQUE: Noncontrast CT of the cervical spine with coronal and sagittal reformatted images. CLINICAL INFORMATION: PSEUDARTHROSIS AFTER FUSION OR ARTHRODESIS COMPARISON: CT August 09, 2020 DLP: 1792.[address] scans at [facility] use at least one of these dose optimization techniques: automat ed exposure control; mA and/or kV adjustment per patient size (includes targeted exams where dose is matched to clinical indication); or iterative reconstruction. FINDINGS: Straightening of the normal cervical lordosis. Prior postoperative changes posterior fusion C2-C5. C2 lamina hooks. Screw fixation C3-C5 interconnecting rods. Hardware appears intact. Stable bulky osteo phytes along the posterior longitudinal ligament at C2-3 C3-4 and C4-C5. Anterior bridging osteophyte s at C2-3 and C5-C7. Carotid bulb calcification. C2-C3: Bulky osteophyte along the posterior longitudinal ligament. Moderate left and no significant r ight foraminal narrowing. Dorsal laminectomy defects. Mild facet arthropathy. C3-C4: Bulky ossification posterior longitudinal ligament. Effacement of the ventral thecal sac. Dors al laminectomy defects. Moderate left and mild right bony foraminal narrowing. C4-C5: Disc osteophyte complex with bulky osteophytes. Moderate left and no significant right foramin al narrowing. Spinal canal is patent. C5-C6: Disc osteophyte complex. Moderate right bony foraminal narrowing. Mild left bony foraminal cata rowing. Spinal canal is patent. C6-C7: Disc osteophyte complex with endplate ridging. Spinal canal and foramen are patent. Mild facet arthropathy. C7-T1: Disc osteophytic ridging. Spinal canal and foramen are patent. Visualized posterior nasopharynx: Normal. Prevertebral soft tissues: Normal. CT/CT cervical spin wo con* [id number] IMPRESSION: 1. Prior postoperative changes dorsal element fusion C2-C5 with C2 lamina hook s. 2. Prominent ossification posterior longitudinal ligament C2-3, C3-C4, and C4- C5.Mild effacement of ventral thecal sac with decompressive laminectomies. 3. Moderate bony foraminal narrowing worse at left C4-5 and right C5-C6 unchan ged. 4. Overall no significant interval changes since August 09, 2020
== END 2020-09-17 15:21 | disposition home or self-care (01) ==
LOC: RADWPI 15:24
PROVIDERS: PCP Family Medicine; Visit Provider Specialist
DX: M96.0 Pseudarthrosis after fusion or arthrodesis (principal); Z98.1 Arthrodesis status; M43.22 Fusion of spine, cervical region
CPT/HCPCS: 72125

== ENCOUNTER → 2020-11-01 13:52 | Outpatient (BNVA) | payer MEDICARE, OTHER, SELFPAY | PROVIDERS: PCP Family Medicine; Visit Provider Specialist | DX: R20.0 Anesthesia of skin (principal); G56.20 Lesion of ulnar nerve, unspecified upper limb; M96.0 Pseudarthrosis after fusion or arthrodesis | CPT/HCPCS: 95886; 95910 ==

== ENCOUNTER → 2020-11-15 16:02 | Outpatient (BNVA) | payer MEDICARE, OTHER, SELFPAY | PROVIDERS: PCP Family Medicine; Visit Provider Family Medicine | DX: E11.9 Type 2 diabetes mellitus without complications (principal); I10 Essential (primary) hypertension; F51.01 Primary insomnia; L20.9 Atopic dermatitis, unspecified; N40.0 Benign prostatic hyperplasia without lower urinary tract symptoms; Z98.890 Other specified postprocedural states | CPT/HCPCS: 80053; 83036; 85025; G0103 ==

== ENCOUNTER → 2020-12-07 10:54 | Outpatient (BNVA) | payer MEDICARE, OTHER, SELFPAY | PROVIDERS: PCP Family Medicine; Visit Provider Family Medicine | DX: K85.90 Acute pancreatitis without necrosis or infection, unspecified (principal) | CPT/HCPCS: 80053; 82150 ==

== ENCOUNTER 2021-01-06 14:04 | Outpatient (CLI) | payer MEDICARE, OTHER, SELFPAY ==
--- NOTE | 2021-01-06 14:29 | CT_ITS ---
WS: [id number] CT CERVICAL SPINE TECHNIQUE: Noncontrast CT of the cervical spine with coronal and sagittal reformatted images. CLINICAL INFORMATION: CERVICALGIA COMPARISON: CT September 17, 2020 multiple prior CTs dating back to May 12, 2020 DLP: 1677.[address] scans at [facility] use at least one of these dose optimization techniques: automat ed exposure control; mA and/or kV adjustment per patient size (includes targeted exams where dose is matched to clinical indication); or iterative reconstruction. FINDINGS: Straightening of the normal cervical lordosis. Prior postoperative changes posterior fusion C2-C5 wit h C2 lamina hooks. Dorsal screw fixation C3-C5 with interconnecting rods. Hardware appears intact. Ti ny amount of lucency along the dorsal bilateral C5 lamina screws right greater than left. This is not significantly changed since the prior examinations. Stable bulky osteophytes along the posterior longitudinal ligament at C2-3, C3-4 and C4-C5. Anterior bridging osteophytes at C2-3 and C5-C7. C2-C3: Bulky osteophyte along the posterior longitudinal ligament. Moderate left and no significant r ight foraminal narrowing. Dorsal laminectomy defects. Mild facet arthropathy. C3-C4: Bulky ossificati on posterior longitudinal ligament. Effacement of the ventral thecal sac. Dorsal laminectomy defects. Moderate left and mild right bony foraminal narrowing. C4-C5: Disc osteophyte complex with bulky ost eophytes. Moderate left and no significant right foraminal narrowing. Spinal canal is patent. C5-C6: Disc osteophyte complex with moderate right bony foraminal narrowing. Mild left bony foraminal narrowing. Spinal canal is patent. C6-C7: Disc osteophyte complex with endplate ridging. Spinal canal and foramen are patent. Mild facet arthropathy. C7-T1: Disc osteophytic ridging. Spinal canal and foramen are patent. CT/CT cervical spin wo con* [id number] IMPRESSION: 1. Prior postoperative changes dorsal element fusion C2-C5 with C2 lamina hook s. 2. Tiny amount of lucency along the bilateral C5 dorsal fixation screws. This is unchanged from the prior examinations. 3. Prominent ossification posterior longitudinal ligament C2-3, C3-C4, and C4- C5.Mild effacement of ventral thecal sac with decompressive laminectomies. 4. Moderate bony foraminal narrowing worse at left C4-5 and right C5-C6 unchan ged from previous. 5. Overall no significant interval changes since 09/17 2020
== END 2021-01-06 14:05 | disposition home or self-care (01) ==
LOC: RADWPI 14:10
PROVIDERS: PCP Family Medicine; Visit Provider Specialist
DX: M54.2 Cervicalgia (principal)
CPT/HCPCS: 72125

== ENCOUNTER → 2021-02-24 13:11 | Outpatient (BNVA) | payer MEDICARE, OTHER, SELFPAY | PROVIDERS: PCP Family Medicine; Visit Provider Surgery | DX: K63.5 Polyp of colon (principal); R10.9 Unspecified abdominal pain; Z20.822 Contact with and (suspected) exposure to COVID-19 | CPT/HCPCS: 87635 ==

== ENCOUNTER 2021-03-03 07:33 | Day surgery (SDC) | payer MEDICARE, OTHER, SELFPAY ==
[2021-03-01 13:41] VITALS: BMI 25.0
--- NOTE | 2021-03-03 08:01 | ANES.PREANE2 ---
Pre-Anesthetic Assessment Pre-Anesthetic Assessment: Height/Weight: Height 1.85 m Weight 86.183 kg Preop Diagnosis: panendoscopy Proposed Procedure: Operation Date: 03/03/21 09:00 Proposed Procedures p EGD/colon [id number] R10.9 K63.5(Not Applicable) - Devante Soto MD s Colonoscopy(Not Applicable) - Devante Soto MD Familial anesthetic complications: None Was Beta Shin taken within 24 hours: N/A Was Clonidine taken within 24 hours: N/A Last intake: > 8 hrs Social: Social History: No alcohol and No tobacco Comment: former smoker Exam: Pre-Anes Outpt Exam: alert, oriented x 3, clear to auscultation bilaterally and regular rate & rhythm Airway: Cervical ROM: Other (limited extension - neck fusion) MP: 1 Dentition: Full (uppers) CV/HEM: CV/HEM: HTN GI: GI: GERD Metabolic: Metabolic: DM and Hyperlipidemia Musc/skel: Musc/skel: OA/DJD Comments: cervical neck pain Neuropsych: Neuropsych: Neuropathy (ulnarj B/L) Anesthetic Plan: ASA status: 3 Anesthesia: MAC Risk of > 500 ml blood loss (7ml/kg in children): No PFSH Anesthesia PFSH: Medical History Cervical disc disorder with myelopathy of mid-cervical region Colon polyps Essential hypertension GERD (gastroesophageal reflux disease) Hypercholesteremia Insomnia Prostate hypertrophy Type 2 diabetes mellitus Surgical History History of appendectomy 1960 History of cervical spinal surgery 03/08/2020 Dr. Deniz Benitez: Multilevel cervical laminectomy, with C2-C5 posterior fusion/segmental fixation. History of cholecystectomy 2000 History of colonoscopy 2016 History of esophagogastroduodenoscopy (EGD) 2003 History of surgery on right wrist History of umbilical hernia repair 1999 Family History Other Family history non-contributory Social History Smoking and tobacco status: never smoked Second hand smoke exposure: No Alcohol intake: never Household members: spouse Marital status: Current occupational status: retired History of recent travel: No Data Anesthesia Cardiac Studies: No Data to Display
[2021-03-03 08:26] VITALS: BP 131/90; PULSE 95; RESP 18; TEMP 36.2; O2SAT 96
[2021-03-03] MEDS: sodium chloride 0.9% 1,000 ML 30 ML IV (08:42)
--- NOTE | 2021-03-03 08:45 | W.PM.OPSFHP ---
Same Day Surgery H&P Indication for Procedure/HPI DATE OF PROCEDURE: March 03, 2021 CHIEF COMPLAINT/INDICATIONFOR SURGICAL PROCEDURE: egd/colon PREOP DIAGNOSIS: panendoscopy PLANNED PROCEDRUE: Operation Date: 03/03/21 09:00 Proposed Procedures p EGD/colon 70004 29714 R10.9 K63.5(Not Applicable) - Devante Soto MD s Colonoscopy(Not Applicable) - Devante Soto MD Medications/Allergies* Home Medications Medication Instructions Recorded Confirmed Type lutein 20 mg tablet 20 mg PO DAILY 02/04/20 03/01/21 History tizanidine 4 mg capsule 4 mg PO Q8H PRN 02/04/20 03/01/21 History metformin 1,000 mg PO BID 03/01/21 03/03/21 History ramipril 2.5 mg PO BEDTIME 03/03/21 03/03/21 History Allergies/Adverse Reactions Allergy/AdvReac Type Severity Reaction Status Date / Time tamsulosin [From Flomax] Allergy Severe back pain Verified 02/23/21 09:09 Current Medications: Generic Name Dose Route Start Last Admin Trade Name Freq PRN Reason Stop Dose Admin Sodium Chloride 1,000 mls @ 30 mls/hr 03/03/21 08:00 03/03/21 08:42 Sodium Chloride 0.9% IV 03/04/21 07:59 30 mls/hr .Q24H CORBIN Administration Pertinent History/Comorbid Conditions* Medical History (Updated 02/23/21 @ 14:13 by Mart Lawson MD) Cervical disc disorder with myelopathy of mid-cervical region Colon polyps Essential hypertension GERD (gastroesophageal reflux disease) Hypercholesteremia Insomnia Prostate hypertrophy Type 2 diabetes mellitus Surgical History (Updated 12/28/20 @ 14:36 by Devante Soto MD) History of appendectomy 1960 History of cervical spinal surgery 03/08/2020 Dr. Deniz Benitez: Multilevel cervical laminectomy, with C2-C5 posterior fusion/segmental fixation. History of cholecystectomy 2000 History of colonoscopy 2016 History of esophagogastroduodenoscopy (EGD) 2002 History of surgery on right wrist History of umbilical hernia repair 1999 Family History (Updated 07/09/20 @ 11:29 by Lauren Martinez APRN) Family history non-contributory Social History Smoking and tobacco status: never smoked Second hand smoke exposure: No Alcohol intake: never Household members: spouse Marital status: Current occupational status: retired History of recent travel: No Pertinent Exam Findings alert, oriented x 3 and operative site marked Recommendations Surgery/Procedure today Coding Level of Care Code Acute Social Media Marketing Specialist for Alex Man
[2021-03-03 08:48] LABS: Glucose Point of Care 137 mg/dL (70-110)
[2021-03-03 09:13] VITALS: BP 162/93; PULSE 106; RESP 20; TEMP 36.3; O2SAT 98
[2021-03-03 09:36] VITALS: BP 135/74; PULSE 84; RESP 20; O2SAT 100
--- NOTE | 2021-03-03 14:11 | ANE.PACU2 ---
Inpatient post-anesthesia follow up: Airway intact: Yes Vital signs: Temperature 97.3 F Pulse Rate 84 Respiratory Rate 20 Blood Pressure 135/74 Pulse Oximetry 100 Oxygen Delivery Me thod Room Air Oxygen Flow Rate Fraction of Inspir ed Oxygen Hydration adequate: Yes Nausea and vomiting: No Pain level: 2 Mental status: Baseline
== END 2021-03-03 09:45 | disposition home or self-care (01) ==
PROVIDERS: PCP Family Medicine; Visit Provider Surgery
PROC: 0DJ08ZZ Inspection of Upper Intestinal Tract, Via Natural or Artificial Opening Endoscopic (ICD-10-PCS; CPT 43235; principal; 2021-03-03 09:00)
PROC: 0DJD8ZZ Inspection of Lower Intestinal Tract, Via Natural or Artificial Opening Endoscopic (ICD-10-PCS; CPT 45378; 2021-03-03 09:00)
DX: R10.13 Epigastric pain (principal); Z86.010 Personal history of colon polyps; D12.2 Benign neoplasm of ascending colon; D12.3 Benign neoplasm of transverse colon; K57.30 Diverticulosis of large intestine without perforation or abscess without bleeding; Z87.891 Personal history of nicotine dependence; I10 Essential (primary) hypertension; K21.9 Gastro-esophageal reflux disease without esophagitis; E78.5 Hyperlipidemia, unspecified; E11.40 Type 2 diabetes mellitus with diabetic neuropathy, unspecified; E78.00 Pure hypercholesterolemia, unspecified
CPT/HCPCS: 36416; 43239; 45380; 82962; 88305; 96360; J2704; J7030

== ENCOUNTER → 2021-10-13 12:11 | Outpatient (BNVA) | payer MEDICARE, OTHER, SELFPAY | PROVIDERS: PCP Family Medicine; Visit Provider Family Medicine | DX: E11.9 Type 2 diabetes mellitus without complications (principal); I10 Essential (primary) hypertension; N40.0 Benign prostatic hyperplasia without lower urinary tract symptoms | CPT/HCPCS: 80053; 83036; 85025; G0103 ==

== ENCOUNTER → 2021-11-01 14:16 | Outpatient (BNVA) | payer MEDICARE, OTHER, SELFPAY | PROVIDERS: PCP Family Medicine; Visit Provider Orthopaedic Surgery | DX: Z98.890 Other specified postprocedural states (principal) | CPT/HCPCS: 72050 ==

== ENCOUNTER → 2022-04-12 12:27 | Outpatient (BNVA) | payer MEDICARE, OTHER, SELFPAY | PROVIDERS: PCP Family Medicine; Visit Provider Family Medicine | DX: R79.89 Other specified abnormal findings of blood chemistry (principal); E03.9 Hypothyroidism, unspecified; E11.9 Type 2 diabetes mellitus without complications | CPT/HCPCS: 84403; 84443 ==

== ENCOUNTER 2022-08-03 10:49 | Outpatient (CLI) | payer MEDICARE, OTHER, SELFPAY ==
--- NOTE | 2022-08-03 10:59 | XR_ITS ---
WS: [id number] Exam: XR lumbar spine min 4V [id number] Date/Time of Exam: 08/03/2022 10:59 AM Reason For Exam: M54.16 - Radiculopathy, lumbar region Comparison 02/25/2019. Posterior interbody fusion at L4-5 with pedicle screws and posterior rods. Decompression laminectomy at this level. Mild degenerative retrolisthesis of L4 on L5 of about 3 mm which is stable. Degenerati ve disc changes and spondylosis at all levels. Osteopenia. Mild levoscoliosis. Disc spacer at L4-5. XR/XR lumbar spine min 4V [id number] IMPRESSION: 1. Stable-appearing posterior fusion with laminectomy at L4-5. 2. Stable appearing mild retrolisthesis of L4 on L5 of about 3 mm. 3. Degenerative changes and osteopenia. Mild scoliosis. No acute fracture.
== END 2022-08-03 10:50 | disposition home or self-care (01) ==
LOC: RAD 10:52
PROVIDERS: PCP Family Medicine; Visit Provider Anesthesiology Pain Medicine
DX: M54.16 Radiculopathy, lumbar region (principal); M96.1 Postlaminectomy syndrome, not elsewhere classified; M41.86 Other forms of scoliosis, lumbar region; M47.816 Spondylosis without myelopathy or radiculopathy, lumbar region; M47.812 Spondylosis without myelopathy or radiculopathy, cervical region; M79.601 Pain in right arm; M79.602 Pain in left arm; M79.605 Pain in left leg; M79.604 Pain in right leg; Z87.891 Personal history of nicotine dependence
CPT/HCPCS: 72110; 99214

== ENCOUNTER → 2022-08-23 13:31 | Outpatient (BNVA) | payer MEDICARE, OTHER, SELFPAY | PROVIDERS: PCP Family Medicine; Visit Provider Anesthesiology Pain Medicine | DX: M47.816 Spondylosis without myelopathy or radiculopathy, lumbar region (principal); Z87.891 Personal history of nicotine dependence | CPT/HCPCS: 64493; 64494; 64495; J3490 ==

== ENCOUNTER → 2022-09-12 10:59 | Outpatient (BNVA) | payer MEDICARE, OTHER, SELFPAY | PROVIDERS: PCP Family Medicine; Visit Provider Anesthesiology Pain Medicine | DX: M47.816 Spondylosis without myelopathy or radiculopathy, lumbar region (principal); M96.1 Postlaminectomy syndrome, not elsewhere classified; M47.812 Spondylosis without myelopathy or radiculopathy, cervical region; M79.601 Pain in right arm; M79.602 Pain in left arm; M79.604 Pain in right leg; M79.605 Pain in left leg | CPT/HCPCS: 99214 ==

== ENCOUNTER → 2022-11-22 11:54 | Outpatient (BNVA) | payer MEDICARE, OTHER, SELFPAY | PROVIDERS: PCP Family Medicine; Visit Provider Family Medicine | DX: E11.9 Type 2 diabetes mellitus without complications (principal); I10 Essential (primary) hypertension | CPT/HCPCS: 80053; 83036; 85025 ==

== ENCOUNTER → 2022-11-30 14:36 | Outpatient (BNVA) | payer MEDICARE, OTHER, SELFPAY | PROVIDERS: PCP Family Medicine; Visit Provider Anesthesiology Pain Medicine | DX: M47.816 Spondylosis without myelopathy or radiculopathy, lumbar region (principal) | CPT/HCPCS: 64635; 64636; J1030 ==

== ENCOUNTER → 2022-12-14 11:20 | Outpatient (BNVA) | payer MEDICARE, OTHER, SELFPAY | PROVIDERS: PCP Family Medicine; Visit Provider Anesthesiology Pain Medicine | DX: M47.816 Spondylosis without myelopathy or radiculopathy, lumbar region (principal); M96.1 Postlaminectomy syndrome, not elsewhere classified; M47.812 Spondylosis without myelopathy or radiculopathy, cervical region; M79.601 Pain in right arm; M79.602 Pain in left arm; M79.604 Pain in right leg; M79.605 Pain in left leg | CPT/HCPCS: 99214 ==

== ENCOUNTER → 2023-01-04 13:40 | Outpatient (BNVA) | payer MEDICARE, OTHER, SELFPAY | PROVIDERS: PCP Family Medicine; Visit Provider Anesthesiology Pain Medicine | DX: M47.816 Spondylosis without myelopathy or radiculopathy, lumbar region (principal) | CPT/HCPCS: 64635; 64636; J1030 ==

== ENCOUNTER → 2023-01-18 09:15 | Outpatient (BNVA) | payer MEDICARE, OTHER, SELFPAY | PROVIDERS: PCP Family Medicine; Visit Provider Anesthesiology Pain Medicine | DX: M47.816 Spondylosis without myelopathy or radiculopathy, lumbar region (principal); M47.812 Spondylosis without myelopathy or radiculopathy, cervical region; M96.1 Postlaminectomy syndrome, not elsewhere classified | CPT/HCPCS: 99212 ==

== ENCOUNTER → 2023-07-18 15:12 | Outpatient (BNVA) | payer MEDICARE, OTHER, SELFPAY | PROVIDERS: PCP Family Medicine; Visit Provider Anesthesiology Pain Medicine | DX: M47.816 Spondylosis without myelopathy or radiculopathy, lumbar region; M96.1 Postlaminectomy syndrome, not elsewhere classified; M47.812 Spondylosis without myelopathy or radiculopathy, cervical region | CPT/HCPCS: 99213 ==

== ENCOUNTER 2023-10-16 15:08 | Outpatient (CLI) | payer MEDICARE, OTHER, SELFPAY ==
[2023-10-16 16:25] LABS: Basophils % 0.8 %; Eosinophils # 0.1 10^3/uL (0.0-0.8); Eosinophils % 2.2 %; Hematocrit 40.9 % (37-53); Lymphocytes # 1.1 10^3/uL (0.8-4.8); Lymphocytes % 22.2 %; Mean Corpuscular HGB Conc 33.5 g/dL (30-55); Mean Corpuscular Hemoglobin 30.1 pg (27-33); Mean Corpuscular Volume 89.9 fl (82-101); Mean Platelet Volume 10.8 fL (7.4-10.4); Monocytes # 0.7 10^3/uL (0.2-0.9); Neutrophils # 3.14 10^3/uL (1.8-7.7); Neutrophils % 61.6 %; Nucleated Red Blood Cells % 0 %; Platelet Count 191 10^3/cmm (157-399); Red Blood Count 4.55 10^6/uL (3.85-5.65); Red Cell Distribution Width 13.2 % (12.1-15.1); White Blood Count 5.09 10^3/uL (3.29-11.43)
[2023-10-16 16:54] LABS: Alanine Aminotransferase 18 U/L (0-41); Alkaline Phosphatase 47 U/L (40-130); Aspartate Amino Transferase 19 U/L (0-40); Blood Urea Nitrogen 8 mg/dL (8-23); Calcium 9.9 mg/dL (8.5-10.5); Carbon Dioxide 31 mmol/L (22-29); Chloride 102 mmol/L (98-107); Free T4 Free Thyroxine 1.22 ng/dL (0.82-1.77); Globulin 2.6 g/dL (1.3-4.6); Glucose 157 mg/dL (65-115); Osmolality Calculated 298 mOsm/kg (285-295); Sodium 143 mmol/L (136-145); Thyroid Stimulating Hormone 1.68 uIU/mL (0.27-4.20); Total Bilirubin 0.4 mg/dL (0.15-1.2); Total Protein 6.6 g/dL (6.6-8.7)
[2023-10-16 19:46] LABS: Iron 56 ug/dL (59-158); Percent Saturation 20.3 % (20-50); Total Iron Binding Capacity 275 mcg/dl; Unsaturated Iron Binding 219 ug/dL (112-347)
== END 2023-10-16 15:09 | disposition home or self-care (01) ==
LOC: LAB 15:08
PROVIDERS: PCP Family Medicine; Visit Provider Nurse Practitioner Family
DX: L21.8 Other seborrheic dermatitis (principal); L29.8 Other pruritus; D50.9 Iron deficiency anemia, unspecified; R53.83 Other fatigue; D22.62 Melanocytic nevi of left upper limb, including shoulder; L81.4 Other melanin hyperpigmentation; L57.8 Other skin changes due to chronic exposure to nonionizing radiation
CPT/HCPCS: 80053; 83540; 83550; 84439; 84443; 85025; 99204

== ENCOUNTER → 2023-12-13 13:12 | Outpatient (BNVA) | payer MEDICARE, OTHER, SELFPAY | PROVIDERS: PCP Family Medicine; Visit Provider Family Medicine | DX: I10 Essential (primary) hypertension (principal); E11.9 Type 2 diabetes mellitus without complications | CPT/HCPCS: 80053; 83036; 85025 ==

== ENCOUNTER → 2024-01-17 10:47 | Outpatient (BNVA) | payer MEDICARE, OTHER, SELFPAY | PROVIDERS: PCP Family Medicine; Visit Provider Anesthesiology Pain Medicine | DX: Z98.890 Other specified postprocedural states; M47.12 Other spondylosis with myelopathy, cervical region; M47.816 Spondylosis without myelopathy or radiculopathy, lumbar region; M96.1 Postlaminectomy syndrome, not elsewhere classified; M47.812 Spondylosis without myelopathy or radiculopathy, cervical region | CPT/HCPCS: 99214 ==

== ENCOUNTER → 2024-01-29 13:11 | Outpatient (BNVA) | payer MEDICARE, OTHER, SELFPAY | PROVIDERS: PCP Family Medicine; Visit Provider Nurse Practitioner Family | DX: L21.8 Other seborrheic dermatitis (principal); L29.8 Other pruritus; D22.62 Melanocytic nevi of left upper limb, including shoulder; L81.4 Other melanin hyperpigmentation; L57.8 Other skin changes due to chronic exposure to nonionizing radiation | CPT/HCPCS: 99214 ==

== ENCOUNTER 2024-02-05 13:36 | Outpatient (CLI) | payer MEDICARE, OTHER, SELFPAY ==
--- NOTE | 2024-02-05 13:45 | US_ITS ---
WS: [id number] ULTRASOUND SOFT TISSUES LEFT foot, plantar surface HISTORY: fluctuance of left instep of foot COMPARISON: None available. TECHNIQUE: 2-D and color Doppler imaging is submitted. Along the plantar surface of the foot near the arch is a lobulated cystic mass with increased vascula rity. Consistent with a dilated vein. Portions of this vein are thrombosed and other portions contain venous vascularity. This is a very superficial dilated vein consistent with a varicosity. No associa kim soft tissue mass is identified. This varicosity extends over a length of at least 3.4 cm. US/US soft tissue/extremity 55179 IMPRESSION: Partially thrombosed varicosity along the plantar surface of the medial LEFT fo ot.
== END 2024-02-05 13:37 | disposition home or self-care (01) ==
LOC: RAD 13:37
PROVIDERS: PCP Family Medicine; Visit Provider Family Medicine
DX: I83.90 Asymptomatic varicose veins of unspecified lower extremity (principal); I82.4Z2 Acute embolism and thrombosis of unspecified deep veins of left distal lower extremity
CPT/HCPCS: 76882

== ENCOUNTER → 2024-02-28 10:38 | Outpatient (BNVA) | payer MEDICARE, OTHER, SELFPAY | PROVIDERS: PCP Family Medicine; Visit Provider Anesthesiology Pain Medicine | DX: M47.816 Spondylosis without myelopathy or radiculopathy, lumbar region; M96.1 Postlaminectomy syndrome, not elsewhere classified; M47.812 Spondylosis without myelopathy or radiculopathy, cervical region | CPT/HCPCS: 99214 ==

== ENCOUNTER 2024-05-27 16:49 | Emergency (ER) | payer MEDICARE, OTHER, SELFPAY ==
--- NOTE | 2024-05-27 16:58 | ECG_ITS ---
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 Measurements Intervals Ezel Rate: 79 P: 76 NV: 197 QRS: 80 QRSD: 102 T: 62 QT: 366 QTc: 420 Interpretive Statements SINUS RHYTHM WITH OCCASIONAL VENTRICULAR PREMATURE COMPLEXES Compared to ECG 03/08/2020 06:27:52 Ventricular premature complex(es) now present Electronically Signed On 05-27-2024 23:32:37 CDT by Jackelyn Anderson M.D. [email or web address]
--- NOTE | 2024-05-27 16:58 | XRR_ITS ---
PROCEDURE INFORMATION: Exam: XR Chest Exam date and time: 05/27/2024 5:07 PM Age: 74 years old Clinical indication: Other: Weakness TECHNIQUE: Imaging protocol: Radiologic exam of the chest. Views: 1 view. COMPARISON: CR XR cervical spine 4-5V [id number] 11/01/2021 2:23 PM FINDINGS: Lungs: No focal consolidation. Pleural spaces: No evidence of pneumothorax. No evidence of pleural effusion. Heart/Mediastinum: Cardiomediastinal silhouette is within normal limits. Bones/joints: No evidence of acute osseous abnormality. XR/XR chest 1V portable [id number] IMPRESSION: 1. No acute cardiopulmonary abnormality.
[2024-05-27 17:04] VITALS: BP 137/75; PULSE 85; RESP 18; TEMP 36.3; O2SAT 98; BMI 24.0
[2024-05-27 17:32] LABS: Basophils # 0.1 10^3/uL (0.0-0.1); Eosinophils # 0.1 10^3/uL (0.0-0.8); Eosinophils % 1.3 %; Hematocrit 41.1 % (37-53); Lymphocytes # 1.7 10^3/uL (0.8-4.8); Lymphocytes % 28.8 %; Mean Corpuscular HGB Conc 33.8 g/dL (30-55); Mean Corpuscular Volume 88.8 fl (82-101); Mean Platelet Volume 10.5 fL (7.4-10.4); Monocytes # 0.8 10^3/uL (0.2-0.9); Monocytes % 12.7 %; Neutrophils # 3.37 10^3/uL (1.8-7.7); Neutrophils % 55.9 %; Nucleated Red Blood Cells % 0 %; Platelet Count 211 10^3/cmm (157-399); Red Blood Count 4.63 10^6/uL (3.85-5.65); Red Cell Distribution Width 13.8 % (12.1-15.1); White Blood Count 6.04 10^3/uL (3.29-11.43)
--- NOTE | 2024-05-27 17:48 | CTR_ITS ---
PROCEDURE INFORMATION: Exam: CT Head Without Contrast Exam date and time: 05/27/2024 6:08 PM Age: 74 years old Clinical indication: Other: Weakness TECHNIQUE: Imaging protocol: Computed tomography of the head without contrast. Radiation optimization: All CT scans at this facility use at least one of these dose optimization techniques: automated exposure control; mA and/or kV adjustment per patient size (includes targeted exams where dose is matched to clinical indication); or iterative reconstruction. COMPARISON: CR XR skull <4V [id number] 02/16/2020 2:49 PM RADIATION DOSE METRICS: Total DLP (mGy-cm): 1184 FINDINGS: Brain: No evidence of intra-axial or extra-axial hemorrhage. No mass effect or midline shift. Navarro-white differentiation is maintained. Basilar cisterns are patent. Cerebral ventricles: No hydrocephalus. Paranasal sinuses: The visualized paranasal sinuses are well aerated. Mastoid air cells: The visualized mastoids and middle ears are clear. Bones: Calvarium is intact. No evidence of acute fracture. Soft tissues: No gross soft tissue abnormality. CT/CT head wo con* [id number] IMPRESSION: 1. No acute intracranial abnormality.
--- NOTE | 2024-05-27 17:48 | ECG_ITS ---
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 Measurements Intervals Brant Rate: 80 P: 75 GA: 199 QRS: 80 QRSD: 100 T: 64 QT: 360 QTc: 416 Interpretive Statements SINUS RHYTHM WITH OCCASIONAL VENTRICULAR PREMATURE COMPLEXES Compared to ECG 05/27/2024 19:04:59 No significant changes Electronically Signed On 05-27-2024 23:32:40 CDT by Jackelyn Anderson M.D. [id number]
--- NOTE | 2024-05-27 17:51 | ED_ITS ---
HPI - Weakness 2 General: Chief complaint: Weakness Stated complaint: weakness Time Seen by Provider: 05/27/24 17:38 Source: patient Mode of arrival: ambulatory Limitations: no limitations History of Present Illness: 74-year-old male who states that he has been feeling generally weak he states to me for months he states he is just felt weak and has had some increased dyspnea especially exertion has been going on for months. States that seem to be worse over the last 3 days with worsening today. He denies any chest pain denies any headache denies any cough or fever states that when he does anything he just feels tired Associated symptoms: Denies chest pain, chills, fever(s), headache(s), nausea or vomiting Review of Systems 2 Const: Reports: fatigue and malaise; Denies: fever(s), chills, body aches or change in appetite ENMT: Denies: throat pain or dental pain Card: Denies: chest pain Resp: Reports: dyspnea GI: Denies: abdominal pain, nausea, vomiting or diarrhea Musc: Denies: neck pain or back pain Skin/Breast: Denies: rash Neuro: Denies: headache(s) PFSH ED 2 PFSH: Medical History Peripheral neuropathy Colon polyps GERD (gastroesophageal reflux disease) Prostate hypertrophy Cervical disc disorder with myelopathy of mid-cervical region Hypercholesteremia Insomnia Essential hypertension Type 2 diabetes mellitus Surgical History History of surgery on right wrist History of appendectomy 1959 History of umbilical hernia repair 1999 History of cholecystectomy 2000 History of colonoscopy 2016 History of esophagogastroduodenoscopy (EGD) 2002 History of cervical spinal surgery 03/08/2020 Dr. Deniz Benitez: Multilevel cervical laminectomy, with C2-C5 posterior fusion/segmental fixation. Family History Other Family history non-contributory Social History Smoking and tobacco/nicotine status: former use of tobacco/nicotine Second hand smoke exposure: No Alcohol intake: never Substance/Drug Use: never Household members: spouse Marital status: Current occupational status: retired Physical Exam 2 Const: COMMON NORMALS: no acute distress, patient oriented x3 and healthy appearing HENMT: COMMON NORMALS: normocephalic and atraumatic HEAD & SCALP: n ormocephalic and atraumatic Neck/C-Spine: COMMON NORMALS: full ROM and supple Chest: COMMONS NORMALS: normal inspection of the chest and normal palpation of entire chest wall Resp: COMMON NORMALS: normal respiratory effort, No retractions, No use of accessory muscles and clear to auscultation bilaterally AUSCULTATION: clear to auscultation bilaterally Cardio: COMMON NORMALS: regular rate, regular rhythm and No murmurs present (Cardio) RATE: regular rate RHYTHM: regular rhythm GI: COMMON NORMALS: Normal to inspection, nondistended, normoactive bowel sounds present, Soft to palpation, non-tender and no masses PALPATION: Yes Soft to palpation Extremity: COMMON NORMALS: normal to inspection and full ROM Neuro: COMMON NORMALS: patient oriented x3, moves all extremities and no focal motor deficits Psych: COMMON NORMALS: mental status grossly normal, Normal thought process present and cooperative THOUGHT PROCESS: Normal thought process present Skin: COMMON NORMALS: no rashes or lesions noted and no wounds GENERAL SKIN EXAM: no rashes or lesions noted Course 2 Vital Signs: Vital signs: Vital Signs Temperature 97.4 F L 05/27/24 17:04 Pulse Rate 71 05/27/24 19:01 Respiratory Rate 18 05/27/24 17:04 Blood Pressure 143/79 05/27/24 19:01 Pulse Oximetry 98 05/27/24 19:01 Oxygen Delivery Me thod Room Air 05/27/24 19:01 MDM - Weakness Medical Decision Making Patient presents for generalized weakness months going on for months workup here is all normal vitals here are normal as well he is stable for discharge she is follow-up with PCP return if worsening he understands agrees to plan. Medical Records I reviewed the patient's medical records. Lab Data I reviewed the patient's lab results. 05/27/24 17:15 05/27/24 17:15 Radiology Impressions Chest X-Ray 05/27/24 16:58 IMPRESSION: 1. No acute cardiopulmonary abnormality. Head CT 05/27/24 17:48 IMPRESSION: 1. No acute intracranial abnormality. Laboratory Results WBC 6.04 10^3/uL (3.29-11.43) 05/27/24 17:15 RBC 4.63 10^6/uL (3.85-5.65) 05/27/24 17:15 Hgb 13.90 g/dL (11.27-16.99) 05/27/24 17:15 Hct 41.1 % (37-53) 05/27/24 17:15 MCV 88.8 fl (82-101) 05/27/24 17:15 MCH 30.0 pg (27-33) 05/27/24 17:15 MCHC 33.8 g/dL (30-55) 05/27/24 17:15 RDW 13.8 % (12.1-15.1) 05/27/24 17:15 Plt Count 211 10^3/cmm (157-399) 05/27/24 17:15 MPV 10.5 fL (7.4-10.4) H 05/27/24 17:15 Neut % (Auto) 55.9 % 05/27/24 17:15 Lymph % (Auto) 28.8 % 05/27/24 17:15 Swisher % (Auto) 12.7 % 05/27/24 17:15 Eos % (Auto) 1.3 % 05/27/24 17:15 Baso % (Auto) 1.0 % 05/27/24 17:15 Neut # (Auto) 3.37 10^3/uL (1.8-7.7) 05/27/24 17:15 Lymph # (Auto) 1.7 10^3/uL (0.8-4.8) 05/27/24 17:15 Swisher # (Auto) 0.8 10^3/uL (0.2-0.9) 05/27/24 17:15 Eos # (Auto) 0.1 10^3/uL (0.0-0.8) 05/27/24 17:15 Baso # (Auto) 0.1 10^3/uL (0.0-0.1) 05/27/24 17:15 Nucleated RBC % (auto) 0 % 05/27/24 17:15 Nucleated RBCs # 0.0 /100WBC 05/27/24 17:15 Sodium 140 mmol/L (136-145) 05/27/24 17:15 Potassium 3.7 mmol/L (3.5-5.1) 05/27/24 17:15 Chloride 100 mmol/L (98-107) 05/27/24 17:15 Carbon Dioxide 30 mmol/L (22-29) H 05/27/24 17:15 Anion Gap 13.7 (5-19) 05/27/24 17:15 BUN 12 mg/dL (8-23) 05/27/24 17:15 Creatinine 0.7 mg/dL (0.7-1.2) 05/27/24 17:15 GFR Calculation Not Reportable 05/27/24 17:15 Glucose 96 mg/dL (65-115) 05/27/24 17:15 POC Glucose 136 mg/dL (70-110) H 05/27/24 18:59 Calculated Osmolality 290 mOsm/kg (285-295) 05/27/24 17:15 Calcium 9.8 mg/dL (8.5-10.5) 05/27/24 17:15 Magnesium 1.8 mg/dL (1.7-2.3) 05/27/24 17:15 Total Bilirubin 0.6 mg/dL (0.15-1.2) 05/27/24 17:15 AST 19 U/L (0-40) 05/27/24 17:15 ALT 19 U/L (0-41) 05/27/24 17:15 Alkaline Phosphatase 51 U/L (40-130) 05/27/24 17:15 Troponin T Baseline 17 ng/L (0-15) H 05/27/24 17:15 Troponin T 120 Minute 14.91 ng/L (0-15) 05/27/24 17:34 Delta Troponin T -2.09 ABS# (0-10) L 05/27/24 17:34 Total Protein 6.9 g/dL (6.6-8.7) 05/27/24 17:15 Albumin 4.4 g/dL (3.5-5.2) 05/27/24 17:15 Globulin 2.5 g/dL (1.3-4.6) 05/27/24 17:15 TSH 3.30 uIU/mL (0.27-4.20) 05/27/24 17:15 Urine Color Yellow (Yellow) 05/27/24 18:44 Urine Appearance Clear (CLEAR) 05/27/24 18:44 Urine pH 5.5 (5-7) 05/27/24 18:44 Ur Specific [place] 1.016 (1.005-1.030) 05/27/24 18:44 Urine Protein Negative (Negative) 05/27/24 18:44 Urine Glucose (UA) Negative (Normal) 05/27/24 18:44 Urine Ketones Negative (Negative) 05/27/24 18:44 Urine Blood Negative (Negative) 05/27/24 18:44 Urine Nitrate Negative (Negative) 05/27/24 18:44 Urine Bilirubin Negative (Negative) 05/27/24 18:44 Urine Urobilinogen 1.0 mg/dL (Negative) 05/27/24 18:44 Ur Leukocyte Esterase Negative (Negative) 05/27/24 18:44 Urine RBC 0-2 /hpf (0-2) 05/27/24 18:44 Urine WBC 0-5 /hpf (0-5) 05/27/24 18:44 Ur Squamous Epith Cells 0-5 /hpf (0-5) 05/27/24 18:44 Amorphous Sediment Not Reportable 05/27/24 18:44 Urine Bacteria None seen /hpf (NONE) 05/27/24 18:44 Hyaline Casts 0.40 /lpf 05/27/24 18:44 SARS-CoV-2 Ag (Rapid) Negative (Negative) 05/27/24 18:24 All radiology interpretation(s) finalized by discharge EKG Data EKG 1: I personally reviewed and interpreted this EKG as follows: EKG interpretation date: 05/27/24 EKG interpretation time: 19:06 Interpretation: nsr hr [address] or t wave abnormalities qrs 100 qtc 396 Discharge Plan Discharge Patient Disposition: Home Clinical Impression: Generalized weakness Condition: Stable Prescriptions: No Action lutein 20 mg tablet 20 mg PO DAILY doxepin 5 % cream 1 applic topical ONCE Qty: 45 1RF ondansetron HCl 4 mg tablet 4 mg PO Q8H PRN (Reason: nausea and vomiting) Qty: 20 0RF (DME) Manual wheel chair See Rx Instructions .Route .MEDSUPPLY Qty: 1 0RF Rx Instructions: As directed acyclovir [Zovirax] 5 % ointment 1 applic topical 6XD 7 Days Qty: 30 0RF triamcinolone acetonide 0.1 % cream See Rx Instructions .ROUTE .COMPLEX Qty: 80 2RF Dose Instruction: APPLY TOPICALLY TWICE DAILY Rx Instructions: APPLY TOPICALLY TWICE DAILY famotidine 40 mg tablet See Rx Instructions .ROUTE .COMPLEX Qty: 180 1RF Dose Instruction: TAKE 1 TABLET BY MOUTH TWICE DAILY *use instead of pantoprazole FOR stomach* Rx Instructions: TAKE 1 TABLET BY MOUTH TWICE DAILY *use instead of pantoprazole FOR stomach* doxazosin 4 mg tablet See Rx Instructions .ROUTE .COMPLEX Qty: 180 1RF Dose Instruction: Take 1 tablet by mouth once daily Rx Instructions: Take 1 tablet by mouth once daily glimepiride 2 mg tablet See Rx Instructions .ROUTE .COMPLEX Qty: 180 3RF Dose Instruction: TAKE 1 TABLET BY MOUTH TWICE DAILY Rx Instructions: TAKE 1 TABLET BY MOUTH TWICE DAILY RSVPreF3 antigen-AS01E (PF) 120 mcg/0.5 mL suspension for reconstitution 0.5 ml IM ONCE Qty: 1 0RF Rx Instructions: single dose ramipril 2.5 mg capsule See Rx Instructions .ROUTE .COMPLEX Qty: 90 2RF Dose Instruction: TAKE 1 CAPSULE BY MOUTH EVERY DAY AT BEDTIME Rx Instructions: TAKE 1 CAPSULE BY MOUTH EVERY DAY AT BEDTIME tizanidine 4 mg tablet See Rx Instructions .ROUTE .COMPLEX Qty: 60 5RF Dose Instruction: TAKE 1 TABLET BY MOUTH EVERY 8 HOURS NEEDED FOR PAIN Rx Instructions: TAKE 1 TABLET BY MOUTH EVERY 8 HOURS NEEDED FOR PAIN gabapentin 600 mg tablet 600 mg PO TID 90 Days Qty: 270 3RF promethazine 25 mg tablet See Rx Instructions .ROUTE .COMPLEX Qty: 20 3RF Dose Instruction: TAKE 1 TABLET BY MOUTH 4 TIMES DAILY NEEDED FOR NAUSEA AND VOMITING Rx Instructions: TAKE 1 TABLET BY MOUTH 4 TIMES DAILY NEEDED FOR NAUSEA AND VOMITING dicyclomine 20 mg tablet See Rx Instructions .ROUTE .COMPLEX Qty: 120 1RF Dose Instruction: TAKE 1 TABLET BY MOUTH TWICE DAILY FOR COLON CRAMPING. TAKE ONE TAB AFTER BRUNCH, MAY REPEAT IN 4 TO 6 HOURS Rx Instructions: TAKE 1 TABLET BY MOUTH TWICE DAILY FOR COLON CRAMPING. TAKE ONE TAB AFTER BRUNCH, MAY REPEAT IN 4 TO 6 HOURS metformin 850 mg tablet 850 mg PO BID Qty: 180 5RF pantoprazole 40 mg tablet,delayed release (DR/EC) See Rx Instructions .ROUTE .COMPLEX Qty: 90 3RF Dose Instruction: Take 1 tablet by mouth once daily Rx Instructions: Take 1 tablet by mouth once daily hydrocodone-acetaminophen 7.5-325 mg tablet 1 tab PO TID PRN (Reason: pain) 30 Days Qty: 90 0RF alprazolam 1 mg tablet 1 mg PO ONCE Qty: 30 5RF Discharge Orders: Discharge ED (Routine); Ordered 05/27/24 Ordered By: Loni Johns Referrals: Mart Lawson MD [Primary Care Provider] - 4-7 days Discharge Diet: Advance as tolerated Discharge Activity: Resume usual activity Patient Instructions: Weakness (ED) Coding Level of Care Code ED Public Works Technician for Chg Fwd Related Data Home Medications Medication Instructions Recorded Confirmed lutein 20 mg tablet 20 mg PO DAILY 02/04/20 01/28/24 Previous Rx's Medication Instructions Recorded acyclovir 5 % topical ointment 1 applic topical 6XD 7 days #30 04/17/22 (Zovirax) grams Manual wheel chair #1 ea 07/31/22 triamcinolone acetonide 0.1 % See Rx Instructions .Route 11/24/22 topical cream .COMPLEX #80 grams famotidine 40 mg tablet See Rx Instructions .Route 06/08/23 .COMPLEX #180 tabs doxazosin 4 mg tablet See Rx Instructions .Route 06/21/23 .COMPLEX #180 tabs doxepin 5 % topical cream 1 applic topical ONCE itchy scalp 06/25/23 #45 grams glimepiride 2 mg tablet See Rx Instructions .Route 07/18/23 .COMPLEX #180 tabs RSVPreF3 antigen-AS01E 0.5 ml IM ONCE #1 ea 09/17/23 adjuvant(PF) 120 mcg/0.5 mL IM suspension, kit ramipril 2.5 mg capsule See Rx Instructions .Route 10/02/23 .COMPLEX #90 caps tizanidine 4 mg tablet See Rx Instructions .Route 11/12/23 .COMPLEX #60 tabs gabapentin 600 mg tablet 600 mg PO TID 90 days #270 tabs 11/26/23 ondansetron HCl 4 mg tablet 4 mg PO Q8H PRN nausea and 12/04/23 vomiting #20 tabs promethazine 25 mg tablet See Rx Instructions .Route 02/11/24 .COMPLEX #20 tabs dicyclomine 20 mg tablet See Rx Instructions .Route 02/20/24 .COMPLEX #120 tabs metformin 850 mg tablet 850 mg PO BID #180 tabs 02/21/24 pantoprazole 40 mg tablet,delayed See Rx Instructions .Route 03/12/24 release .COMPLEX #90 tabs hydrocodone 7.5 mg-acetaminophen 1 tab PO TID PRN pain 30 days #90 04/30/24 325 mg tablet tabs alprazolam 1 mg tablet 1 mg PO ONCE #30 tabs 05/23/24 Allergies Allergy/AdvReac Type Severity Reaction Status Date / Time tamsulosin [From Flomax] Allergy Severe back pain Verified 01/28/24 13:38
[2024-05-27 18:05] LABS: Alanine Aminotransferase 19 U/L (0-41); Albumin Level 4.4 g/dL (3.5-5.2); Alkaline Phosphatase 51 U/L (40-130); Anion Gap 13.7 (5-19); Aspartate Amino Transferase 19 U/L (0-40); Blood Urea Nitrogen 12 mg/dL (8-23); Calcium 9.8 mg/dL (8.5-10.5); Carbon Dioxide 30 mmol/L (22-29); Chloride 100 mmol/L (98-107); Creatinine Clr Calc Pharmacy 88.7819; Globulin 2.5 g/dL (1.3-4.6); Glucose 96 mg/dL (65-115); Magnesium 1.8 mg/dL (1.7-2.3); Osmolality Calculated 290 mOsm/kg (285-295); Potassium 3.7 mmol/L (3.5-5.1); Sodium 140 mmol/L (136-145); Total Bilirubin 0.6 mg/dL (0.15-1.2); Total Protein 6.9 g/dL (6.6-8.7)
[2024-05-27 18:21] VITALS: BP 150/84; PULSE 65; O2SAT 99
[2024-05-27 18:39] LABS: Troponin(5th) Baseline 17 ng/L (0-15)
[2024-05-27 18:58] LABS: Charge for UA Resulting for Rev
[2024-05-27 19:01] VITALS: BP 143/79; PULSE 71; O2SAT 98
[2024-05-27 19:01] LABS: Glucose Point of Care 136 mg/dL (70-110)
[2024-05-27 19:08] LABS: SARS Covid-2 Antigen Negative (Negative)
[2024-05-27 19:10] LABS: Bilirubin Urine Negative (Negative); Blood Urine Negative (Negative); Glucose Urine UA Negative (Normal); Ketones Urine Negative (Negative); Leukocyte Esterase Urine Negative (Negative); Nitrate Urine Negative (Negative); Protein Urine Negative (Negative); Specific Gravity, Urine 1.016 (1.005-1.030); Urine Appearance Clear (CLEAR); Urine Color Yellow (Yellow); pH Urine 5.5 (5-7)
[2024-05-27 19:15] LABS: Bacteria Urine None Seen /hpf; RBC Urine 0-2 /hpf (0-2); Squamous Epithelial Cell Urine 0-5 /hpf (0-5); WBC Urine 0-5 /hpf (0-5)
[2024-05-27] MEDS: sodium chloride 0.9% 500 ML 999 ML IV (19:26)
[2024-05-27 19:30] VITALS: BP 145/70; PULSE 79; O2SAT 98
[2024-05-27 20:00] VITALS: BP 129/68; PULSE 81; O2SAT 99
[2024-05-27 20:01] LABS: Troponin 5 2HR 14.91 ng/L (0-15)
[2024-05-27 20:03] LABS: Troponin 5 2HR Delta -2.09 ABS# (0-10)
--- NOTE | 2024-05-27 20:09 | ECG_ITS ---
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 Measurements Intervals Booker Rate: 77 P: 78 OK: 197 QRS: 80 QRSD: 98 T: 66 QT: 372 QTc: 422 Interpretive Statements SINUS RHYTHM WITH FREQUENT VENTRICULAR PREMATURE COMPLEXES ABNORMAL RHYTHM ECG Compared to ECG 05/27/2024 19:06:04 No significant changes Electronically Signed On 05-27-2024 23:43:26 CDT by Jackelyn Anderson M.D. [id number]
[2024-05-27 20:30] VITALS: BP 135/87; PULSE 76; O2SAT 99
== END 2024-05-27 20:38 | disposition home or self-care (01) ==
PROVIDERS: Emergency Provider Emergency Medicine; PCP Family Medicine
DX: R53.1 Weakness (principal); Z79.84 Long term (current) use of oral hypoglycemic drugs; Z11.52 Encounter for screening for COVID-19; Z87.891 Personal history of nicotine dependence; E11.42 Type 2 diabetes mellitus with diabetic polyneuropathy; I10 Essential (primary) hypertension
CPT/HCPCS: 36415; 36416; 70450; 71045; 80053; 81003; 81015; 82962; 83735; 84443; 84484; 85025; 87426; 93005; 96360; 99285; J7040

== ENCOUNTER → 2024-06-05 13:00 | Outpatient (BNVA) | payer MEDICARE, OTHER, SELFPAY | PROVIDERS: PCP Family Medicine; Visit Provider Internal Medicine Cardiovascular Disease | DX: R55 Syncope and collapse (principal); R00.2 Palpitations; I49.1 Atrial premature depolarization; I49.3 Ventricular premature depolarization; I48.91 Unspecified atrial fibrillation | CPT/HCPCS: 93246 ==

== ENCOUNTER 2024-06-27 15:04 | Outpatient (CLI) | payer MEDICARE, OTHER, SELFPAY ==
--- NOTE | 2024-06-27 15:00 | USCV_ITS ---
Ghulam Cotton Age: 74 Gender: M : 1950 Exam Date: 06/27/2024 15:14 Ordering Phys: Mart Lawson MD Technologist: CT Exam [place] [facility] [place] Indication: garcia BP: 142 / 86 HR: 79 Rhythm: Sinus Technical Quality: Adequate MEASUREMENTS (Male / Female) Normal Values 2D ECHO LVOT Diameter 2.0 cm LV Ejection Fraction MOD 4C 42.1 % LV Ejection Fraction MOD 2C 51.8 % LV Ejection Fraction 2C AL 52.0 % LA Diameter 3.4 cm RA Systolic Volume 4C AL 45.7 ml RA Systolic Volume 4C MOD 44.5 ml LA Sys Volume AL 59.0 cm cubed LA Sys Volume Index AL 29.2 cm cubed/m squared Aorta at Sinotubular Diameter 2.2 cm IVC Diameter 1.8 cm M-MODE LA Ao Ratio MM 1.0 AV Cusp Separation MM 1.8 cm DOPPLER AV Peak Velocity 130.0 cm/s LVOT Peak Velocity 78.0 cm/s AV Area Cont Eq vti 2.5 cm squared AV Area Cont Eq pk 2.0 cm squared MV Peak Velocity 98.0 cm/s MV Area PHT 2.2 cm squared Mitral E to A Ratio 0.6 TV Peak E Velocity 53.0 cm/s Right Atrial Pressure 3.0 mmHg PV Peak Velocity 117.5 cm/s FINDINGS Left Ventricle Diffuse hypokinesis left ventricular ejection fraction of 42%. Mildly dilated LV cavity.Grade I/IV diastolic dysfunction (abnormal relaxation filling pattern), normal to mildly elevated filling pressures. Right Ventricle The right ventricle is normal in size and function. Right Atrium The right atrium is normal in size. Left Atrium The left atrium is normal in size. Mitral Valve Grade 2 prolapse of the posterior mitral leaflet.mild mitral valve regurgitation. Aortic Valve Thickened aortic valve. Tricuspid Valve No gross abnormalities noted Pulmonic Valve No gross abnormalities noted Pericardium Normal pericardium without effusion. Aorta Normal ascending aorta dimension. IVC Normal inferior vena cava. CONCLUSIONS Diffuse hypokinesis left ventricular ejection fraction of 42%. Mildly dilated LV cavity. Grade I/IV diastolic dysfunction (abnormal relaxation filling pattern), normal to mildly elevated filling pressures. Grade 2 prolapse of the posterior mitral leaflet.mild mitral valve regurgitation. Thickened aortic valve. There is no pericardial effusion. There are no intracardiac masses. No similar previous studies are available for comparison Dr Jackelyn Anderson MD [facility] (Electronically Signed) Final Date: 27 June 2024 18:04 S
== END 2024-06-27 15:05 | disposition home or self-care (01) ==
LOC: RAD 15:05
PROVIDERS: PCP Family Medicine; Visit Provider Family Medicine
DX: I34.1 Nonrheumatic mitral (valve) prolapse (principal); I50.20 Unspecified systolic (congestive) heart failure; I50.30 Unspecified diastolic (congestive) heart failure; I35.2 Nonrheumatic aortic (valve) stenosis with insufficiency; R00.2 Palpitations; R55 Syncope and collapse
CPT/HCPCS: 93306

== ENCOUNTER → 2024-07-17 12:56 | Outpatient (BNVA) | payer MEDICARE, OTHER, SELFPAY | PROVIDERS: PCP Family Medicine; Visit Provider Internal Medicine | DX: R07.9 Chest pain, unspecified (principal) | CPT/HCPCS: 36415; 80048; 85025; 85610; 93005; 99204 ==

== ENCOUNTER 2024-07-23 05:52 | Outpatient (CLI) | payer MEDICARE, OTHER, SELFPAY ==
[2024-07-23] VITALS (12 sets, daily range): BP systolic 112–151; BP diastolic 70–96; PULSE 72–89; RESP 14–22; O2SAT 92–98; BMI 23.7
--- NOTE | 2024-07-23 06:00 | XACV_ITS ---
Exam Room: 2 Ht: 183 cm Wt: 79 kg BSA: 2.01 m2 Gender: Male : 1950 Any Known Allergies: Other Exam Priority: Routine Procedure(s): Procedure Description: Diagnostic procedure Procedure Description: Left Heart Catheterization Procedure Description: Left ventriculography Procedure Description: Coronary Angiography Diagnostic Cath Status: Elective Diagnostic Findings * INDICATION: LV dysfunction/ Dyspnea on exertion. * Left Main has no significant disease. * Left Anterior Descending has mild luminal irregularities. * Circumflex has diffuse luminal irregularities. Gives rise to a large sized OM vessel which bifurcates in distal area. One of the bifurcating branches has significant 70 to 80% stenosis.. * RCA is patent. Has a medium sized PLV that has 60-70% stenosis. * Coronary angiography shows right dominance. Conclusions 1. Non-obstructive coronary artery disease in large coronary arteries. Has significant stenosis in distal small sized branch of OM 1. We will medically treat it. PLV has borderline moderate to severe stenosis. Plan for medical therapy. 2. Normal left ventricular systolic function. Ejection fraction of 50%. Recommendations * Aggressive risk factor modication. * Outpatient cardiology follow up in 2 weeks. Interventional RX Recommendation: medical therapy and/or counseling Diagnostic RX Recommendation: medical therapy and/or counseling Anticoagulation: Heparin Ventriculography Ejection Fraction: 50.0 % Pressures Phase:Rest AO : 103 / 65 ( 81 ) @ 9:20:00 AM 105 / 65 ( 84 ) @ 9:21:00 AM 144 / 76 ( 106 ) @ 9:30:00 AM 143 / 75 ( 104 ) @ 9:30:00 AM LV : 137 / -14 / 9 @ 9:29:00 AM 139 / 2 / 18 @ 9:30:00 AM 147 / 0 / 19 @ 9:30:00 AM RV : 33 / 5 / 11 @ 9:11:00 AM PA : 30 / 12 ( 17 ) @ 9:09:00 AM RA : a wave = 11 v wave = 9 mean = 8 @ 9:11:00 AM PCW : a wave = 16 v wave = 16 mean = 13 @ 9:09:00 AM O2 Content Phase:Rest PA : O2 Content O2: 76.1 @ 9:21:00 AM Saturations Phase:Rest AO : 98 @ 9:20:00 AM PA : 76 @ 9:21:00 AM Cardiac Output Phase:Rest Heri : 6 @ 8:40:26 AM Heri Cardiac Index: 3 @ 8:40:26 AM Flow Phase:Rest Qp : 6 @ 8:40:26 AM Qs : 6 @ 8:40:26 AM Valves Phase:DefaultPhase AV : 2.0 @ 8:40:26 AM AV Mean Gradient: 16.0 @ 8:40:26 AM AV Flow: 797 @ 8:40:26 AM AV Area: 4.5 @ 8:40:26 AM AV Area Index: 2.24 @ 8:40:26 AM Clinical Evaluation EBL: 5mL-10mL Procedural Details Pre-Procedure Time Out. Identified patient by full name and date of as verbalized by the patient/guarantor. Does the consent match the physician's order: Yes. Accurate & Complete Informed Consent: Yes. Inpatient/Outpatient History & Physical on Chart: Yes. If H&P is completed, is and addenduem needed: No; If yes, is the addendum complete: N/A. Visualize and Verify Site with Patient/Guarantor: N/A. Relevant Radiology Images available: Yes. Pre-op teaching completed and patient verbalized understanding. The risks, benefits, and alternatives of sedation and/or procedure were discussed by physician. The patient agrees to continue. Procedure started. [facility] Clinical Fraility Score: 3: Managing Well. Emergency Management Coordinator Indications: Other. Chest Pain Symptom Assessment: Non-anginal Chest Pain. Correct patient, site and procedure confirmed by cath team. Physician arrived. IV Site on Arrival: 20 gauge in the right anticubital. IV Site on Arrival: 20 gauge in the left forearm. PERRLA. Strong, equal hand puppy sitter bilaterally. Lungs clear x 5 lobes. IV Fluids: 0.9% NaCl at KVO. 0 mL infused prior to candlemaking laborer. Pre Procedural Pulses: bilateral dorsalis pedis was 1+. Pre Procedural Pulses: bilateral posterior tibial was 1+. Pre Procedural Pulses: bilateral radial was 2+. right groin was prepped with chloroprep then draped in the usual sterile fashion. right radial was prepped with chloroprep then draped in the usual sterile fashion. right brachial was prepped with chloroprep then draped in the usual sterile fashion. Baseline sample Acquired. HR: 93 BPM. Physician scrubbed in. Immediate Pre-Procedure Time Out. Correct Patient: Yes; Correct Procedure: Yes; Correct Site: Yes; Correct Patient Position: Yes; Correct Supplies: Yes; Dried Flammable Prep: Yes; Blood Products Available: N/A;. Lidocaine 1% infiltrated to the right brachial. Sheath wire inserted through the right brachial IV catheter. IV catheter out OTW. [place] MON catheter inserted. [place] wire inserted through the catheter. Oximetry samples were obtained. Normal venous range: 60-85%. Normal arterial range: 95-100%. Pressure measurements obtained. [place] out. Lidocaine 1% infiltrated to the right radial. Ultrasound being used to obtain access. Arterial access obtained. A 5 moroccan TIG catheter in over wire. Multiple views taken of left coronary artery. Catheter redirected to the RCA. Multiple views taken of right coronary artery. Physician review of cine films. Catheter attached to heparnized saline flush at KVO to maintain patency. Catheter removed over the exchange wire. A 5 moroccan Angled Pig catheter in over wire. EDP Sample taken: LV 137/-15,9; HR: 82 BPM; SpO2: 100%. LV gram performed in LUCIA @ 10 mL/second for a total of 30 mL. EDP Sample taken: LV 139/2,18; HR: 94 BPM; SpO2: 100%. Pullback taken: LV 147/-1,19; AO 144/76(106); Mean: 16mmHg, Peak to Peak: 2mmHg, SEP: 8sec/min; HR: 84 BPM; SpO2: 100%. Catheter removed over the exchange wire. A TR Band was successful obtaining hemostatsis at the Right Radial artery insertion site. A Manual Compression was successful obtaining hemostatsis at the Right Brachial Vein insertion site. Vital chart was stopped. Post Procedure: Pulses reassessed and unchanged. PERRLA. Strong, equal hand puppy sitter bilaterally. No VTE prophylaxis required. Medication's Wasted: Other = Fentanyl 50 mcg. Medication's Wasted: Nitro = 49.8 mcg. Medication's Wasted: Lidocaine 1% = 16 mL. Total IV fluids: 50 mL. Post-op diagnosis: Non-obstructive CAD. Complications: None. Estimated blood loss: 5mL-10mL. Responsiveness - Normal response to verbal stimuli; alert and oriented, PERRLA. Airway - Unaffected, no intervention required; spontaneous ventilation. Circulation: W/N/L, pulses unchanged. Nausea/Vomiting: No. Procedure completed. Patient transferred by wheelchair to CPRU. Access Site Site: Right Brachial Vein Sheath Size: 6 Fr Hemostasis Method: Manual Compression Hemostasis Success: Successful Site: Right Radial artery Sheath Size: 6 Fr Hemostasis Method: TR Band Hemostasis Success: Successful Procedure Medications Start: 7:53 AM Stop: 7:53 AM Medication: Versed Amount: 1 mg Route: I.V. Start: 7:56 AM Stop: 7:56 AM Medication: Fentanyl Amount: 25 mcg Route: I.V. Start: 8:03 AM Stop: 8:03 AM Medication: Fentanyl Amount: 25 mcg Route: I.V. Start: 8:18 AM Stop: 8:18 AM Medication: Heparin Amount: 5000 units Route: I.V. Start: 8:20 AM Stop: 8:20 AM Medication: Versed Amount: 1 mg Route: I.V. Start: 8:18 AM Stop: 8:18 AM Medication: Nitrogylcerin Amount: 200 mcg Route: I.A. I, the attending physician, have reviewed and verified all procedure medications. Yes, all medications given per verbal order History/Risk Factors Hypertension: Yes Dyslipidemia: Yes Peripheral Arterial Disease (PAD): No Myocardial Infarction (VT): No Obesity: No Renal Disease: No Tobacco Use: Former Prior Interventions PCI: No CABG: No Valve Surgery: No Report Signatures Finalized by Clayton Calvillo MD on 07/23/2024 02:22 PM
[2024-07-23] MEDS: diphenhydrAMINE 50 mg Capsule PO (06:30)
--- NOTE | 2024-07-23 07:56 | W.PM.OPSUD ---
Surgery/Procedure H&P Update DATE OF PROCEDURE: July 23, 2024 DATE H&P PERFORMED: 07/17/24 H&P UPDATE INFORMATION: I have reviewed H&P completed within last 30 days, I have examined patient prior to procedure and No changes to prior documentation PREOP DIAGNOSIS: LV dysfunction PRIMARY INDICATION FOR PROCEDURE: LV dysfunction PLANNED PROCEDURE: Operation Date: 07/23/24 07:00 Proposed Procedures p Cardiac Catheterization - RLHC w/wo LV & Tonja(Bilateral) - Clayton Calvillo M.D Possible percutaneous coronary intervention PATIENT REASSESSED PRIOR TO SEDATION, WITH NO CHANGE NOTED: Yes PHYSICAL EXAM: alert, oriented x 3, clear to auscultation bilaterally and regular rate & rhythm AIRWAY EVAL/ANESTHESIA PLAN: normal airway, ASA III, Local Anesthesia, Risks, benefits & alternatives of sedation and/or procedure discussed and Patient agrees to continue as planned ADDITIONAL INFORMATION: Moderate sedation
[2024-07-23 08:32] LABS: Alveolar-Arterial Oxygen Gradi 0.6 mmHg (5-10); Arterial Blood Gas Hematocrit 41.6 % (42-52); Carboxyhemoglobin 0.9 %THgb (0.4-20.1); HGB O2 Sat 95.6 % (95-100); Total Hemoglobin 13.6 g/dL (14-18)
[2024-07-23 08:34] LABS: Alveolar-Arterial Oxygen Gradi 6.2 mmHg (5-10); Arterial Blood Gas Hematocrit 39.5 % (42-52); Blood Gas Operator Identificat MONRO; Blood Gas Sample Site AO; Blood Gas Sample Site PA; Blood Gas Sample Type Not specified; HGB O2 Sat 75.1 % (95-100); Methemoglobin 0.3 % (0.4-1.5); Oxygen Device ROOM AIR; Total Hemoglobin 12.9 g/dL (14-18)
--- NOTE | 2024-07-23 09:00 | SUR.PHASEII ---
Received the patient back from the laborer pipeline via wheelchair s/p Diagnostic R & LHC. Patient ambulated to the cot without difficulty. A & 0 x 3. panel monitor placed and vital signs obtained. TR band intact to the right wrist. No bleeding or hematoma noted. Palpable radial pulse. Bulky pressure dressing intact to the right brachial area. No other assessment changes noted from pre cath assessment. Family at bedside. No concerns voiced at this time.
--- NOTE | 2024-07-23 09:45 | SUR.PHASEII ---
Letting the air out of the TR band per protocol. No other changes at this time.
--- NOTE | 2024-07-23 10:45 | SUR.PHASEII ---
TR Band off. Site cleansed with warm water and patted dry. A large band aid was applies to the site and secured loosely with coban. No bleeding or hematoma noted. Palpable radial pulse. No other assessment changes noted. Family remains at bedside.
== END 2024-07-23 05:53 | disposition home or self-care (01) ==
PROVIDERS: PCP Family Medicine; Visit Provider Internal Medicine
DX: I25.10 Atherosclerotic heart disease of native coronary artery without angina pectoris (principal); I11.0 Hypertensive heart disease with heart failure; Z87.891 Personal history of nicotine dependence; Z82.49 Family history of ischemic heart disease and other diseases of the circulatory system; Z79.84 Long term (current) use of oral hypoglycemic drugs; E11.40 Type 2 diabetes mellitus with diabetic neuropathy, unspecified; E78.00 Pure hypercholesterolemia, unspecified
CPT/HCPCS: 36415; 82810; 93460; 96374; 99152; 99153; C1751; C1769; C1887; C1894; J1644; J2250; J3010; J3490; J7030; Q0163; Q9967

== ENCOUNTER → 2024-08-04 08:28 | Outpatient (BNVA) | payer MEDICARE, OTHER, SELFPAY | PROVIDERS: PCP Family Medicine; Visit Provider Nurse Practitioner Family | DX: I42.8 Other cardiomyopathies (principal); I10 Essential (primary) hypertension; I25.10 Atherosclerotic heart disease of native coronary artery without angina pectoris; I51.9 Heart disease, unspecified; Z87.891 Personal history of nicotine dependence | CPT/HCPCS: 36415; 80048; 99214 ==

== ENCOUNTER → 2024-10-14 13:40 | Outpatient (BNVA) | payer MEDICARE, OTHER, SELFPAY | PROVIDERS: PCP Family Medicine; Visit Provider Anesthesiology Pain Medicine | DX: M47.816 Spondylosis without myelopathy or radiculopathy, lumbar region; M96.1 Postlaminectomy syndrome, not elsewhere classified; M47.812 Spondylosis without myelopathy or radiculopathy, cervical region | CPT/HCPCS: 99214 ==

== ENCOUNTER → 2024-11-11 10:16 | Outpatient (BNVA) | payer MEDICARE, OTHER, SELFPAY | PROVIDERS: PCP Family Medicine; Visit Provider Anesthesiology Pain Medicine | DX: M47.816 Spondylosis without myelopathy or radiculopathy, lumbar region (principal); M96.1 Postlaminectomy syndrome, not elsewhere classified; M54.2 Cervicalgia; E11.9 Type 2 diabetes mellitus without complications; N40.1 Benign prostatic hyperplasia with lower urinary tract symptoms; N39.43 Post-void dribbling; I10 Essential (primary) hypertension | CPT/HCPCS: 80053; 83036; 85025; 99214; G0103 ==

== ENCOUNTER 2024-12-02 12:18 | Outpatient (CLI) | payer MEDICARE, OTHER, SELFPAY ==
--- NOTE | 2024-12-02 12:21 | XRR_ITS ---
PROCEDURE INFORMATION: Exam: XR Right Hip Exam date and time: 12/02/2024 12:34 PM Age: 74 years old Clinical indication: Pain; Other: Groin; Prior surgery; Surgery date: 6+ months; Surgery type: Lower back surgeries including fusion TECHNIQUE: Imaging protocol: Radiologic exam of the right hip. Views: 1 view hip with pelvis when performed. COMPARISON: CT abdomen pelvis w con* [id number] 01/01/2018 9:47 PM FINDINGS: Bones/joints: Femoroacetabular alignment is normal. Joint space is preserved. There are small acetabular osteophytes. No acute fracture. The visible portion of the pelvis and sacrum is intact. Soft tissues: Visible soft tissues are unremarkable. XR/XR hip RT 2-3V wo/w pel* [id number] IMPRESSION: No acute findings.
== END 2024-12-02 12:19 | disposition home or self-care (01) ==
LOC: RAD 12:20
PROVIDERS: PCP Family Medicine; Visit Provider Family Medicine
DX: R10.31 Right lower quadrant pain (principal); M25.751 Osteophyte, right hip; Z98.890 Other specified postprocedural states
CPT/HCPCS: 73502

== ENCOUNTER → 2024-12-16 12:58 | Outpatient (BNVA) | payer MEDICARE, OTHER, SELFPAY | PROVIDERS: PCP Family Medicine; Visit Provider Anesthesiology Pain Medicine | DX: M47.816 Spondylosis without myelopathy or radiculopathy, lumbar region (principal); E11.9 Type 2 diabetes mellitus without complications; Z01.818 Encounter for other preprocedural examination; M54.9 Dorsalgia, unspecified | CPT/HCPCS: 36416; 64635; 64636; 82962 ==

== ENCOUNTER → 2024-12-30 13:01 | Outpatient (BNVA) | payer MEDICARE, OTHER, SELFPAY | PROVIDERS: PCP Family Medicine; Visit Provider Anesthesiology Pain Medicine | DX: M47.816 Spondylosis without myelopathy or radiculopathy, lumbar region (principal); M54.9 Dorsalgia, unspecified; E11.9 Type 2 diabetes mellitus without complications; Z01.818 Encounter for other preprocedural examination | CPT/HCPCS: 36416; 64635; 64636; 82962; J1010; J9999 ==

== ENCOUNTER → 2025-01-12 11:09 | Outpatient (BNVA) | payer MEDICARE, OTHER, SELFPAY | PROVIDERS: PCP Family Medicine; Visit Provider Anesthesiology Pain Medicine | DX: M54.9 Dorsalgia, unspecified (principal); M47.816 Spondylosis without myelopathy or radiculopathy, lumbar region; M96.1 Postlaminectomy syndrome, not elsewhere classified; M54.2 Cervicalgia | CPT/HCPCS: 99214 ==

== ENCOUNTER → 2025-01-28 13:30 | Outpatient (BNVA) | payer MEDICARE, OTHER, SELFPAY | PROVIDERS: PCP Family Medicine; Visit Provider Nurse Practitioner Family | DX: S00.01XA Abrasion of scalp, initial encounter (principal); L57.8 Other skin changes due to chronic exposure to nonionizing radiation; L81.4 Other melanin hyperpigmentation; D22.5 Melanocytic nevi of trunk; L82.1 Other seborrheic keratosis; L82.0 Inflamed seborrheic keratosis; L29.89 Other pruritus; Z78.9 Other specified health status; R20.8 Other disturbances of skin sensation; R58 Hemorrhage, not elsewhere classified; L53.8 Other specified erythematous conditions; X58.XXXA Exposure to other specified factors, initial encounter | CPT/HCPCS: 17110; 99213 ==

== ENCOUNTER → 2025-02-03 14:36 | Outpatient (BNVA) | payer MEDICARE, OTHER, SELFPAY | PROVIDERS: PCP Family Medicine; Visit Provider Internal Medicine | DX: R06.09 Other forms of dyspnea (principal); I10 Essential (primary) hypertension; I51.9 Heart disease, unspecified; E78.00 Pure hypercholesterolemia, unspecified; E11.9 Type 2 diabetes mellitus without complications; Z79.84 Long term (current) use of oral hypoglycemic drugs; Z79.82 Long term (current) use of aspirin; Z87.891 Personal history of nicotine dependence | CPT/HCPCS: 99214 ==

== ENCOUNTER 2025-03-04 09:57 | Outpatient (CLI) | payer MEDICARE, OTHER, SELFPAY ==
--- NOTE | 2025-03-04 10:00 | USCV_ITS ---
Ghulam Cotton Age: 74 Gender: M : 1950 Exam Date: 03/04/2025 10:34 Ordering Phys: Clayton Calvillo M.D ([email or web address]) Technologist: Exam Location: [facility] [place] Indication: lv function sob BP: / HR: 83 Rhythm: Sinus Technical Quality: Adequate MEASUREMENTS (Male / Female) Normal Values 2D ECHO LVOT Diameter 2.0 cm LV Ejection Fraction MOD 4C 63.3 % LV Ejection Fraction MOD 2C 77.4 % LV Ejection Fraction 2C AL 78.0 % LA Diameter 3.3 cm Aorta at Sinotubular Diameter 3.1 cm M-MODE LA Ao Ratio MM 1.1 AV Cusp Separation MM 2.3 cm DOPPLER AV Peak Velocity 161.0 cm/s LVOT Peak Velocity 63.0 cm/s AV Area Cont Eq vti 1.8 cm squared AV Area Cont Eq pk 1.2 cm squared MV Peak Velocity 320.7 cm/s MV Area PHT 5.2 cm squared Mitral E to A Ratio 0.7 TR Peak Velocity 259.0 cm/s TR Peak Gradient 26.8 mmHg TV Peak E Velocity 87.0 cm/s PV Peak Velocity 155.0 cm/s FINDINGS Left Ventricle LV systolic function is normal with EF of 55-60%. No regional wall motion abnormalities are seen. Grade 1 diastolic dysfunction. Right Ventricle Normal in size and function Right Atrium Normal in size Left Atrium Normal in size Mitral Valve Grossly normal. Mild mitral regurgitation Aortic Valve Grossly normal. No significant stenosis or regurgitation. Tricuspid Valve Insufficient TR jet to calculate RVSP Pulmonic Valve Not well visualized Pericardium Grossly normal Aorta Grossly normal in size IVC Not well visualized. CONCLUSIONS Technically limited quality echocardiogram because of poor ultrasonic windows. LV systolic function is normal with EF of 55-60%. Grade 1 diastolic dysfunction Mild mitral regurgitation Clayton Calvillo MD (Electronically Signed) Final Date: 22 March 2025 15:48 S
[2025-03-04] MEDS: perflutren protein-a microsphr 0.22 mg/mL SDV 3 mL IV (12:59)
== END 2025-03-04 09:58 | disposition home or self-care (01) ==
PROVIDERS: PCP Family Medicine; Visit Provider Internal Medicine
DX: I51.9 Heart disease, unspecified (principal); R93.1 Abnormal findings on diagnostic imaging of heart and coronary circulation; I34.0 Nonrheumatic mitral (valve) insufficiency
CPT/HCPCS: C8929

== ENCOUNTER → 2025-05-06 11:11 | Outpatient (BNVA) | payer MEDICARE, OTHER, SELFPAY | PROVIDERS: PCP Family Medicine; Visit Provider Family Medicine | DX: I10 Essential (primary) hypertension (principal); E11.9 Type 2 diabetes mellitus without complications | CPT/HCPCS: 80053; 83036; 85025 ==

== ENCOUNTER → 2025-07-14 09:59 | Outpatient (BNVA) | payer MEDICARE, OTHER, SELFPAY | PROVIDERS: PCP Family Medicine; Visit Provider Anesthesiology Pain Medicine | DX: M47.816 Spondylosis without myelopathy or radiculopathy, lumbar region (principal); M96.1 Postlaminectomy syndrome, not elsewhere classified; M54.2 Cervicalgia | CPT/HCPCS: 99214 ==

== ENCOUNTER → 2025-09-15 09:31 | Outpatient (BNVA) | payer MEDICARE, OTHER, SELFPAY | PROVIDERS: PCP Family Medicine; Visit Provider Nurse Practitioner Family | DX: R06.09 Other forms of dyspnea (principal); I25.10 Atherosclerotic heart disease of native coronary artery without angina pectoris; I10 Essential (primary) hypertension | CPT/HCPCS: 99214 ==